=== PATIENT | female | born 1965 | race Caucasian/White ===

== ENCOUNTER → 2018-05-08 | Outpatient (CLI) | payer MEDICARE ==
[2018-05-08 11:07] VITALS: BP 150/80; PULSE 70; RESP 16; TEMP 98.1
--- NOTE | 2018-05-08 11:54 | P.CONS ---
History of Present Illness - Reason for Consult Consult date: 05/08/18 - Chief Complaint Neck and lower back pain - History of Present Illness This is a 52-year-old lady with chronic history of neck and lower back pain status post 5 lower back surgeries and one surgery on the cervical spine. The patient is here today mostly for her neck pain which has been getting worse lately. The pain radiates down to the left shoulder and to the left elbow however the patient denies any numbness or tingling in the left arm however she does feel some numbness in her right hand which is not that painful side. This numbness in the right hand is not constant. She also complains of decreased range of motion of the cervical spine. She feels that her left arm is weaker than the right one. She denies any bowel or bladder dysfunction. This pain occasionally wakes her up at night. She also has difficulty lifting up her left arm above her shoulder level. The patient takes [place] 5 mg 3 times a day for her pain. Review of Systems Cardiovascular: Denies chest pain, Denies shortness of breath Respiratory: Denies cough Musculoskeletal: Reports as per HPI Neurological: Reports as per HPI Past Medical History Past Medical History: Osteoarthritis (OA) Additional Past Medical History / Comment(s): NECK AND BACK PAIN, HX OF PARALYZED VOCAL CORD AFTER CERVICAL SURGERY AND HAD VOCAL CORD SURGERY., PATIENT HAS LAP BAND (NO FLUID) History of Any Multi-Drug Resistant Organisms: None Reported Past Surgical History: Back Surgery, Bariatric Surgery, Joint Replacement, Orthopedic Surgery, Tubal Ligation Additional Past Surgical History / Comment(s): LAP BAND (2011), RT KNEE SURGERIES, PARTIAL RIGHT KNEE REPLACEMENT AND TOTAL RIGHT KNEE REPLACEMENT., BACK SURGERIES AND CERVICAL SURGERY., VOCAL CORD SURGERY X2 (AFTER CERVICAL SURGERY PARALYZED HER VOCAL CORD), LEFT ROTATOR CUFF AND IMPINGMENT REPAIR. Past Anesthesia/Blood Transfusion Reactions: No Reported Reaction Smoking Status: Never smoker - Past Family History Mother Family Medical History: CVA/TIA Father Family Medical History: Cancer, CVA/TIA Additional Family Medical History / Comment(s): PROSTATE CANCER Sister(s) Additional Family Medical History / Comment(s): BRAIN ANEURYSM Medications and Allergies Home Medications Medication Instructions Recorded Confirmed Type HYDROcodone/APAP 5-325MG [[place] 1 tab PO TID PRN 05/08/18 05/08/18 History 5-325] Allergies Allergy/AdvReac Type Severity Reaction Status Date / Time No Known Allergies Allergy Verified 05/07/18 09:02 Physical Exam Vitals: Vital Signs Temp Pulse Resp BP Pulse Ox 05/08/18 10:57 98.1 F 70 16 150/80 99 Intake and Output 05/07/18 05/08/18 05/08/18 22:59 06:59 14:59 Other: Weight 88.451 kg - EENT Eyes: PERRLA - Respiratory Respiratory: bilateral: CTA - Cardiovascular Rhythm: regular - Neurologic Neuro exam of the upper extremities showed normal and symmetrical muscle strength except for decreased left deltoid muscle strength due to shoulder pain. Normal biceps reflexes bilaterally and absent triceps reflexes bilaterally. Neuro exam of the lower extremities showed normal and symmetrical muscle strength and knee reflexes however she has absent ankle reflexes bilaterally. She has decreased range of motion of the left shoulder joint to less than 90 for abduction. Decreased range of motion of the cervical spine. Postoperative tenderness in the cervical paravertebral musculature and significant tenderness around the left shoulder joints posteriorly. Neurologic: CNII-XII intact - Psychiatric Psychiatric: A&O x's 3, appropriate affect, intact judgment & insight Results Results: The cervical spine MRI shows multiple levels of neural foraminal stenosis especially at the C3 4 and C4 5 levels which are the levels above her cervical fusion. 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 The patient is going to see an orthopedic surgeon tomorrow. I prefer to start by doing steroid injection in the left shoulder joint and for any remnants of her pain we might try cervical epidural steroid injection in the future if we need to. Dr. Del Rio may elect to do the shoulder joint steroid injection if he is willing to , if not we can schedule the patient for this injection at sometime in the near future. I thank you for the referral
== END | disposition home or self-care (01) ==
LOC: PNWHC3 10:44
PROVIDERS: ATTEND Anesthesiology
DX: G89.29 Other chronic pain (principal); M48.02 Spinal stenosis, cervical region; M19.012 Primary osteoarthritis, left shoulder; Z98.890 Other specified postprocedural states
CPT/HCPCS: 99201

== ENCOUNTER → 2019-09-21 | Outpatient (CLI) | payer MEDICARE ==
[2019-09-21 14:03] VITALS: BP 127/81; PULSE 65; RESP 16; TEMP 98.1; BMI 35.0
--- NOTE | 2019-09-21 14:04 | P.HPBAR ---
Bariatric H&P - History & Physicial H&P Date: 09/21/19 History & Physicial: Visit/CC: Band f/u Patient initial contact: Initial weight: 104.922 kg Initial weight in pounds: 231.31 Height: 5 ft 6 in Initial BMI: 37.3 Last weight: Current weight: 98.43 kg Current weight in pounds: 217.00 Current BMI: 35.0 [place] body weight (based on NIH guidelines): 58.967 kg Excess body weight loss: 14.1% The patient is a 54 year-old F who presents for Bariatric Assessment. Patient presents today for lab band follow up. She's not been seen in many years. She currently is hungry. Past Medical History Past Medical History: Osteoarthritis (OA) Additional Past Medical History / Comment(s): NECK AND BACK PAIN, HX OF PARALYZED VOCAL CORD AFTER CERVICAL SURGERY AND HAD VOCAL CORD SURGERY., PATIENT HAS LAP BAND (NO FLUID) History of Any Multi-Drug Resistant Organisms: None Reported Past Surgical History: Back Surgery, Bariatric Surgery, Joint Replacement, Orthopedic Surgery, Tubal Ligation Additional Past Surgical History / Comment(s): LAP BAND (2011), RT KNEE SURGERIES, PARTIAL RIGHT KNEE REPLACEMENT AND TOTAL RIGHT KNEE REPLACEMENT., BACK SURGERIES AND CERVICAL SURGERY., VOCAL CORD SURGERY X2 (AFTER CERVICAL SURGERY PARALYZED HER VOCAL CORD), LEFT ROTATOR CUFF AND IMPINGMENT REPAIR. Past Anesthesia/Blood Transfusion Reactions: No Reported Reaction Smoking Status: Unknown if ever smoked - Past Family History Mother Family Medical History: CVA/TIA Father Family Medical History: Cancer, CVA/TIA Additional Family Medical History / Comment(s): PROSTATE CANCER Sister(s) Additional Family Medical History / Comment(s): BRAIN ANEURYSM Surgical - Exam Vital Signs Temp Pulse Resp BP 98.1 F 65 16 127/81 09/21/19 14:00 09/21/19 14:00 09/21/19 14:00 09/21/19 14:00 - General well developed, well nourished, no distress - Eyes PERRL - ENT normal pinna - Neck no masses - Respiratory normal expansion - Cardiovascular Rhythm: regular - Abdomen Abdomen: soft, non tender Bariatric Assessment & Plan Plan: Patient's lap band adjustment. She had 1 mL placed in the band. She'll follow- up in 4 weeks. Bariatric Checklist Checklist: Plan: Checklist: EGD: 1. Hiatal hernia: 2. H. Pylori: HgbA1c: Vitamin D: Smoking: Never smoker Primary care physician referral: dr. cavanaugh Psychiatry clearance: Cardiology clearance: Sleep study: Diet journal: VTE risk score: VTE risk level: Rehab needs at discharge:
== END ==
LOC: BARWHC3 13:36
PROVIDERS: ATTEND Surgery
DX: Z46.51 Encounter for fitting and adjustment of gastric lap band (principal); Z98.84 Bariatric surgery status
CPT/HCPCS: 99212

== ENCOUNTER → 2019-11-09 | Outpatient (CLI) | payer MEDICARE ==
[2019-11-09 14:03] VITALS: BP 146/84; PULSE 82; TEMP 98.2; BMI 33.7
--- NOTE | 2019-11-09 14:08 | P.HPBAR ---
Bariatric H&P - History & Physicial H&P Date: 11/09/19 History & Physicial: Visit/CC: lap band follow up Patient initial contact: Initial weight: 104.922 kg Initial weight in pounds: 231.31 Height: 5 ft 6 in Initial BMI: 37.3 Last weight: Current weight: 94.801 kg Current weight in pounds: 209.00 Current BMI: 33.7 [place] body weight (based on NIH guidelines): 58.967 kg Excess body weight loss: 22.0% The patient is a 54 year-old F who presents for Bariatric Assessment. Patient presents today for lab band follow up. She was adjusted a month ago. She has lost 8 pounds and her last adjustment. She had minimal GERD. Past Medical History Past Medical History: Osteoarthritis (OA) Additional Past Medical History / Comment(s): NECK AND BACK PAIN, HX OF PARALYZED VOCAL CORD AFTER CERVICAL SURGERY AND HAD VOCAL CORD SURGERY., PATIENT HAS LAP BAND (NO FLUID) History of Any Multi-Drug Resistant Organisms: None Reported Past Surgical History: Back Surgery, Bariatric Surgery, Joint Replacement, Orthopedic Surgery, Tubal Ligation Additional Past Surgical History / Comment(s): LAP BAND (2011), RT KNEE SURGERIES, PARTIAL RIGHT KNEE REPLACEMENT AND TOTAL RIGHT KNEE REPLACEMENT., BACK SURGERIES AND CERVICAL SURGERY., VOCAL CORD SURGERY X2 (AFTER CERVICAL SURGERY PARALYZED HER VOCAL CORD), LEFT ROTATOR CUFF AND IMPINGMENT REPAIR. Past Anesthesia/Blood Transfusion Reactions: No Reported Reaction Smoking Status: Never smoker, Unknown if ever smoked - Past Family History Mother Family Medical History: CVA/TIA Father Family Medical History: Cancer, CVA/TIA Additional Family Medical History / Comment(s): PROSTATE CANCER Sister(s) Additional Family Medical History / Comment(s): BRAIN ANEURYSM Surgical - Exam Vital Signs Temp Pulse BP 98.2 F 82 146/84 11/09/19 13:59 11/09/19 13:59 11/09/19 13:59 - General well developed, well nourished, no distress - Eyes PERRL - ENT normal pinna - Neck no masses - Respiratory normal expansion - Cardiovascular Rhythm: regular - Abdomen Abdomen: soft, non tender Bariatric Assessment & Plan Plan: Status post lap band procedure. Patient had excellent weight loss last month. Her band was not adjusted. She currently 7.5 mL in the band. She'll follow-up in 4 weeks. Her GERD is normal he will be observed. Bariatric Checklist Checklist: Plan: Checklist: EGD: 1. Hiatal hernia: 2. H. Pylori: HgbA1c: Vitamin D: Smoking: Never smoker Primary care physician referral: dr. cavanaugh Psychiatry clearance: Cardiology clearance: Sleep study: Diet journal: VTE risk score: VTE risk level: Rehab needs at discharge:
== END | disposition home or self-care (01) ==
LOC: BARWHC3 13:02
PROVIDERS: ATTEND Surgery
DX: Z48.815 Encounter for surgical aftercare following surgery on the digestive system (principal); Z98.84 Bariatric surgery status
CPT/HCPCS: 99211

== ENCOUNTER → 2020-02-15 | Outpatient (CLI) | payer MEDICARE ==
[2020-02-15 13:28] VITALS: BP 127/81; PULSE 75; RESP 18; TEMP 98
--- NOTE | 2020-02-15 14:33 | P.HPBAR ---
Bariatric H&P - History & Physicial H&P Date: 02/15/20 History & Physicial: Visit/CC: follow up / lap band Patient initial contact: Initial weight: 104.922 kg Initial weight in pounds: 231.31 Height: 5 ft 6 in Initial BMI: Last weight: Current weight: 89.358 kg Current weight in pounds: Current BMI: [place] body weight (based on NIH guidelines): Excess body weight loss: The patient is a 54 year-old F who presents for Bariatric Assessment. He presents today for lab band follow. She's not been seen well. She is requesting a fill. Past Medical History Past Medical History: Osteoarthritis (OA) Additional Past Medical History / Comment(s): NECK AND BACK PAIN, HX OF PARALYZED VOCAL CORD AFTER CERVICAL SURGERY AND HAD VOCAL CORD SURGERY., PATIENT HAS LAP BAND (NO FLUID) History of Any Multi-Drug Resistant Organisms: None Reported Past Surgical History: Back Surgery, Bariatric Surgery, Joint Replacement, Orthopedic Surgery, Tubal Ligation Additional Past Surgical History / Comment(s): LAP BAND (2011), RT KNEE SURGERIES, PARTIAL RIGHT KNEE REPLACEMENT AND TOTAL RIGHT KNEE REPLACEMENT., BACK SURGERIES AND CERVICAL SURGERY., VOCAL CORD SURGERY X2 (AFTER CERVICAL SURGERY PARALYZED HER VOCAL CORD), LEFT ROTATOR CUFF AND IMPINGMENT REPAIR. Past Anesthesia/Blood Transfusion Reactions: No Reported Reaction Past Psychological History: No Psychological Hx Reported Smoking Status: Never smoker, Unknown if ever smoked Past Alcohol Use History: None Reported Past Drug Use History: None Reported - Past Family History Mother Family Medical History: CVA/TIA Father Family Medical History: Cancer, CVA/TIA Additional Family Medical History / Comment(s): PROSTATE CANCER Sister(s) Additional Family Medical History / Comment(s): BRAIN ANEURYSM Surgical - Exam Vital Signs Temp Pulse Resp BP 98 F 75 18 127/81 02/15/20 13:24 02/15/20 13:24 02/15/20 13:24 02/15/20 13:24 - General well nourished - Eyes PERRL - Abdomen Abdomen: soft, non tender Bariatric Assessment & Plan Plan: Patient LAP-BAND was just appeared to 0.5 mL added to the band. She currently is 8 mL in the band. He is able to water without difficulty. She'll follow-up in 4 weeks. Bariatric Checklist Checklist: Plan: Checklist: EGD: 1. Hiatal hernia: 2. H. Pylori: HgbA1c: Vitamin D: Smoking: Never smoker Primary care physician referral: NO PCP Psychiatry clearance: Cardiology clearance: Sleep study: Diet journal: VTE risk score: VTE risk level: Rehab needs at discharge:
[2020-02-15 14:37] VITALS: BMI 31.8
== END | disposition home or self-care (01) ==
LOC: BARWHC3 13:01
PROVIDERS: ATTEND Surgery
DX: Z46.51 Encounter for fitting and adjustment of gastric lap band (principal); Z98.84 Bariatric surgery status
CPT/HCPCS: 99212

== ENCOUNTER → 2020-06-13 | Outpatient (CLI) | payer MEDICARE ==
[2020-06-13 14:41] VITALS: BP 128/85; PULSE 73; TEMP 98.1; BMI 30.7
--- NOTE | 2020-06-13 15:21 | P.HPBAR ---
Bariatric H&P - History & Physicial H&P Date: 06/13/20 History & Physicial: Visit/CC: lap band follow up Patient initial contact: Initial weight: 104.922 kg Initial weight in pounds: 231.31 Height: 5 ft 6 in Initial BMI: 37.3 Last weight: Current weight: 86.183 kg Current weight in pounds: 190.00 Current BMI: 30.7 [place] body weight (based on NIH guidelines): 58.967 kg Excess body weight loss: 40.7% The patient is a 55 year-old F who presents for Bariatric Assessment. She presents today for bariatric follow-up. She is lost 7 pounds since her last visit. Patient is has mild complaints of GERD. She's also complaints of her panniculus. She has 1 rashes underneath her pannicular fold. She is interested panniculectomy. Past Medical History Past Medical History: Osteoarthritis (OA) Additional Past Medical History / Comment(s): NECK AND BACK PAIN, HX OF PARALYZED VOCAL CORD AFTER CERVICAL SURGERY AND HAD VOCAL CORD SURGERY., PATIENT HAS LAP BAND (NO FLUID) History of Any Multi-Drug Resistant Organisms: None Reported Past Surgical History: Back Surgery, Bariatric Surgery, Joint Replacement, Orthopedic Surgery, Tubal Ligation Additional Past Surgical History / Comment(s): LAP BAND (2011), RT KNEE SURGERIES, PARTIAL RIGHT KNEE REPLACEMENT AND TOTAL RIGHT KNEE REPLACEMENT., BACK SURGERIES AND CERVICAL SURGERY., VOCAL CORD SURGERY X2 (AFTER CERVICAL SURGERY PARALYZED HER VOCAL CORD), LEFT ROTATOR CUFF AND IMPINGMENT REPAIR. Past Anesthesia/Blood Transfusion Reactions: No Reported Reaction Past Psychological History: No Psychological Hx Reported Smoking Status: Never smoker, Unknown if ever smoked Past Alcohol Use History: None Reported Past Drug Use History: None Reported - Past Family History Mother Family Medical History: CVA/TIA Father Family Medical History: Cancer, CVA/TIA Additional Family Medical History / Comment(s): PROSTATE CANCER Sister(s) Additional Family Medical History / Comment(s): BRAIN ANEURYSM Surgical - Exam Vital Signs Temp Pulse BP 98.1 F 73 128/85 06/13/20 14:39 06/13/20 14:39 06/13/20 14:39 - General well developed, well nourished, no distress - Eyes PERRL - ENT normal pinna - Neck no masses - Respiratory normal expansion - Cardiovascular Rhythm: regular - Abdomen Well-formed panniculus Abdomen: soft, non tender Bariatric Assessment & Plan Plan: Status post lap band procedure. Patient is minimal will be observed. She is in a good fill zone. Patient was given an information packet. We will attempt to obtain authorization. Bariatric Checklist Checklist: Plan: Checklist: EGD: 1. Hiatal hernia: 2. H. Pylori: HgbA1c: Vitamin D: Smoking: Never smoker Primary care physician referral: NO PCP Psychiatry clearance: Cardiology clearance: Sleep study: Diet journal: VTE risk score: VTE risk level: Rehab needs at discharge:
== END ==
LOC: BARWHC3 13:35
PROVIDERS: ATTEND Surgery
DX: E66.01 Morbid (severe) obesity due to excess calories (principal); Z68.30 Body mass index [BMI] 30.0-30.9, adult; Z98.84 Bariatric surgery status; Z46.51 Encounter for fitting and adjustment of gastric lap band; K21.9 Gastro-esophageal reflux disease without esophagitis
CPT/HCPCS: 99211

== ENCOUNTER → 2020-07-11 | Outpatient (CLI) | payer MEDICARE ==
[2020-07-11 15:07] VITALS: BP 114/77; PULSE 71; RESP 18; TEMP 98; BMI 30.4
--- NOTE | 2020-07-11 15:17 | P.HPBAR ---
Bariatric H&P - History & Physicial H&P Date: 07/11/20 History & Physicial: Visit/CC: follow up/ PANNI Patient initial contact: Initial weight: 104.922 kg Initial weight in pounds: 231.31 Height: 5 ft 6 in Initial BMI: 37.3 Last weight: Current weight: 85.729 kg Current weight in pounds: 189.00 Current BMI: 30.4 [place] body weight (based on NIH guidelines): 58.967 kg Excess body weight loss: 41.7% The patient is a 55 year-old F who presents for Bariatric Assessment. Patient presents today for presurgical panniculectomy consultation. Her insurance authorization still pending. She's had some mild GERD. Past Medical History Past Medical History: Osteoarthritis (OA) Additional Past Medical History / Comment(s): NECK AND BACK PAIN, HX OF PARALYZED VOCAL CORD AFTER CERVICAL SURGERY AND HAD VOCAL CORD SURGERY., PATIENT HAS LAP BAND (NO FLUID) History of Any Multi-Drug Resistant Organisms: None Reported Past Surgical History: Back Surgery, Bariatric Surgery, Joint Replacement, Orthopedic Surgery, Tubal Ligation Additional Past Surgical History / Comment(s): LAP BAND (2011), RT KNEE SURGERIES, PARTIAL RIGHT KNEE REPLACEMENT AND TOTAL RIGHT KNEE REPLACEMENT., BACK SURGERIES AND CERVICAL SURGERY., VOCAL CORD SURGERY X2 (AFTER CERVICAL SURGERY PARALYZED HER VOCAL CORD), LEFT ROTATOR CUFF AND IMPINGMENT REPAIR. Past Anesthesia/Blood Transfusion Reactions: No Reported Reaction Past Psychological History: No Psychological Hx Reported Smoking Status: Never smoker Past Alcohol Use History: None Reported Past Drug Use History: None Reported - Past Family History Mother Family Medical History: CVA/TIA Father Family Medical History: Cancer, CVA/TIA Additional Family Medical History / Comment(s): PROSTATE CANCER Sister(s) Additional Family Medical History / Comment(s): BRAIN ANEURYSM Surgical - Exam Vital Signs Temp Pulse Resp BP 98 F 71 18 114/77 07/11/20 14:54 07/11/20 14:54 07/11/20 14:54 07/11/20 14:54 - General well developed, well nourished, no distress - Eyes PERRL - ENT normal pinna - Neck no masses - Respiratory normal expansion - Cardiovascular Rhythm: regular - Abdomen Abdomen: soft, non tender - Genitourinary normal external genitalia - Integumentary Well formed pannus no rash Bariatric Assessment & Plan Plan: Patient's large pannus. We will await insurance authorization prior to scheduling her. Patient's GERD is minimal and observed. Bariatric Checklist Checklist: Plan: Checklist: EGD: 1. Hiatal hernia: 2. H. Pylori: HgbA1c: Vitamin D: Smoking: Never smoker Primary care physician referral: NO PCP Psychiatry clearance: Cardiology clearance: Sleep study: Diet journal: VTE risk score: VTE risk level: Rehab needs at discharge:
[2020-07-11 16:28] LABS: HCT 37.9 % (34.0-46.0); HGB 12.8 gm/dL (11.4-16.0); MCHC 33.7 g/dL (31.0-37.0); Mean Platelet Volume 7.4; Platelet Count 253 k/uL (150-450); RBC 4.12 m/uL (3.80-5.40); RDW 12.9 % (11.5-15.5); WBC 5.4 k/uL (3.8-10.6)
[2020-07-12 03:01] LABS: % Iron Saturation 22.04 (12.00-45.00); African American GFR (CKD) 73.4 (60.0-200.0); Albumin 4.3 g/dL (3.80-4.90); Albumin/Globulin Ratio 1.87 (1.60-3.17); Calcium 9.3 mg/dL (8.7-10.3); Globulin 2.3 g/dL (1.6-3.3); Magnesium 1.9 mg/dL (1.5-2.4); Non-African American GFR(CKD) 63.4 (60.0-200.0); Potassium 4.8 mmol/L (3.5-5.5); Total Bilirubin 0.2 mg/dL (0.2-1.2); Total Protein 6.6 g/dL (6.2-8.2)
[2020-07-12 03:11] LABS: Ferritin 99.8 ng/mL (10.0-291.0)
[2020-07-12 03:12] LABS: Folate, Serum 2.9 ng/mL
[2020-07-13 12:56] LABS: Zinc, Serum 73 ug/dL (60-130)
[2020-07-14 06:29] LABS: Vit B1(Thiamine) 47 ug/L (38-122)
[2020-07-14 06:37] LABS: Vitamin A 19 ug/dL (38-106)
== END ==
LOC: BARWHC3 14:53
PROVIDERS: ATTEND Surgery
DX: E65 Localized adiposity (principal); E66.01 Morbid (severe) obesity due to excess calories; K21.9 Gastro-esophageal reflux disease without esophagitis; D50.8 Other iron deficiency anemias; E44.0 Moderate protein-calorie malnutrition; E55.9 Vitamin D deficiency, unspecified; T56.894A Toxic effect of other metals, undetermined, initial encounter; M19.90 Unspecified osteoarthritis, unspecified site; Z68.37 Body mass index [BMI] 37.0-37.9, adult
CPT/HCPCS: 84255; 84425; 80053; 82607; 82728; 82746; 83540; 83550; 83735; 84443; 84590; 84630; 85027; 82306; 93005; 36415; G0463; 99211

== ENCOUNTER 2020-08-08 06:05 | Observation (INO) | payer MEDICARE ==
[2020-07-27 16:07] VITALS: BMI 29.3
[~2020-08-08 06:05] MED LIST: DEXAMETHASONE SOD PHOSPHATE 4 MG/ML 1 ML VIAL IV ONE; LACTATED RINGERS 1,000 ML IV SCH; LIDOCAINE 1% (10MG/ML) FOR IV START INTRADERMA PRN; MIDAZOLAM 2 MG/2 ML VIAL IV PRN; ONDANSETRON 4 MG/2 ML VIAL IVP ONE
[2020-08-08] MEDS ORDERED: LACTATED RINGERS 1,000 ML IV ONE ×4 (06:41→10:50)
[2020-08-08] MEDS ORDERED: fentaNYL (PF) 50 MCG/ML 2 ML AMP IV ONE (07:28)
[2020-08-08] MEDS ORDERED: HEPARIN SODIUM,PORCINE/PF 5,000 UNIT/0.5 ML SYRINGE SQ ONE (07:47)
[2020-08-08] MEDS ORDERED: MIDAZOLAM 2 MG/2 ML VIAL ONE (07:50)
[2020-08-08] MEDS ORDERED: HYDROmorphone (PF) 1 MG/ML ONE (07:50)
[2020-08-08] MEDS ORDERED: NEOSTIGMINE 1 MG/ML 10 ML VIAL ONE (07:50)
[2020-08-08] MEDS ORDERED: GLYCOPYRROLATE 0.2 MG/ML 2 ML VIAL ONE (07:50)
[2020-08-08] MEDS ORDERED: ROPIVACAINE 5 MG/ML 30 ML VIAL ONE (07:50)
[2020-08-08] MEDS ORDERED: HEPARIN SODIUM,PORCINE 5,000 UNIT/ML 1 ML VIAL SQ ONE (07:50)
[2020-08-08] MEDS ORDERED: ROCURONIUM 10 MG/ML (5 ML VIAL) IV ONE (07:50)
[2020-08-08] MEDS ORDERED: fentaNYL (PF) 50 MCG/ML 2 ML AMP ONE (07:50)
[2020-08-08] MEDS ORDERED: LIDOCAINE 1% INJ 10MG/ML (20 ML MDV) ONE (07:50)
[2020-08-08] MEDS ORDERED: PROPOFOL 10 MG/ML 20 ML VIAL IV ONE (07:50)
--- NOTE | 2020-08-08 10:26 | P.GSHP ---
History of Present Illness H&P Date: 08/08/20 Chief Complaint: Panniculus This a 55-year-old female who presents today for panniculectomy. Patient has developed a well-formed panniculus. Using an excess of 100 pounds. Patient's aware that procedure is not cosmetic however procedure to remove redundant skin and fat. She is possible revisional plastic surgery. Past Medical History Past Medical History: Osteoarthritis (OA) Additional Past Medical History / Comment(s): NECK AND BACK PAIN, HX OF PARALYZED VOCAL CORD AFTER CERVICAL SURGERY, fully vaccinated for covid History of Any Multi-Drug Resistant Organisms: None Reported Past Surgical History: Back Surgery, Bariatric Surgery, Section, Joint Replacement, Orthopedic Surgery, Tubal Ligation Additional Past Surgical History / Comment(s): LAP BAND (2011), RT KNEE SURGERIES, PARTIAL RIGHT KNEE REPLACEMENT AND TOTAL RIGHT KNEE REPLACEMENT., BACK SURGERIES AND CERVICAL SURGERY., VOCAL CORD SURGERY X2 (AFTER CERVICAL SURGERY PARALYZED HER VOCAL CORD), LEFT ROTATOR CUFF REPAIR. Past Anesthesia/Blood Transfusion Reactions: No Reported Reaction Smoking Status: Never smoker - Past Family History Mother Family Medical History: CVA/TIA Father Family Medical History: Cancer, CVA/TIA Additional Family Medical History / Comment(s): PROSTATE CANCER Sister(s) Additional Family Medical History / Comment(s): BRAIN ANEURYSM Medications and Allergies Home Medications Medication Instructions Recorded Confirmed Type HYDROcodone/APAP 5-325MG [[place] 1 tab PO TID PRN 05/08/18 07/27/20 History 5-325] Vitamin A 8,000 unit PO DAILY 07/27/20 07/27/20 History Allergies Allergy/AdvReac Type Severity Reaction Status Date / Time No Known Allergies Allergy Verified 07/27/20 16:03 Surgical - Exam Vital Signs Temp Pulse Resp BP Pulse Ox 97.7 F 57 L 18 146/71 100 08/08/20 06:30 08/08/20 06:30 08/08/20 06:30 08/08/20 06:30 08/08/20 06:30 - General well developed, well nourished, no distress - Eyes PERRL - ENT normal pinna - Neck no masses - Respiratory normal expansion - Cardiovascular Rhythm: regular - Abdomen Abdomen: soft, non tender - Integumentary Well-formed panniculectomy Assessment and Plan Assessment: Panniculus. W we will perform panniculectomy
[2020-08-08] MEDS ORDERED: NALOXONE 0.4 MG/ML 1 ML VIAL IV PRN (10:28)
[2020-08-08] MEDS ORDERED: traMADol 50 MG TAB PO PRN (10:28)
[2020-08-08] MEDS: HYDROmorphone 0.5 MG/0.5 ML SYRINGE IVP PRN ×5 (10:28→20:54)
[2020-08-08] MEDS ORDERED: ONDANSETRON 4 MG/2 ML VIAL IVP PRN (10:28)
[2020-08-08] MEDS ORDERED: Acetaminophen-Codeine 300-30mg TAB PO PRN (10:28)
--- NOTE | 2020-08-08 10:28 | P.OP ---
Date of Procedure: 08/08/20 Preoperative Diagnosis: Panniculus Postoperative Diagnosis: Panniculus Procedure(s) Performed: Panniculectomy Anesthesia: RAJINDER Surgeon: Jono Page Estimated Blood Loss (ml): 25 Pathology: none sent Condition: stable Disposition: PACU Description of Procedure: PROCEDURE: The patient was placed on the operating table in supine position and received general anesthetic. The abdomen was prepped and draped in the usual sterile fashion. The lower skin incision was then made after the skin was marked with a marker. The incision ran from the pubic area to the level of the anterosuperior iliac spine. Using blunt and sharp dissection and electrocautery the subcutaneous tissues were then dissected down to the level of the fascia external oblique. Next, a dionne shaped incision was made around the umbilicus and the umbilicus was then dissected down to the level of the fascia external oblique. Care was taken to ensure that the umbilical stalk was wide enough in order to maintain viability of the umbilicus. After the umbilicus was dissected a 0 Vicryl suture was used to orientate the umbilicus. The suture was placed at the 12 o'clock position of the umbilicus. Following this the dissection was then made from the inferior pannicular incision cephalad. The x iphoid and costal margins were the limits of the dissection. Several small perforating vessels were ligated and cautery was used to maintain hemostasis. Once the dissection was performed the panniculus was then divided in the midline from the level of the umbilicus towards the pubic area. Downward and lateral traction was then placed on the abdominal wall and the skin was suitably marked for transection of the umbilicus. The skin was then incised and the Bovie was used for dissection of the pannicular flap. Next, three 10-Faroese ANGELIA drains were placed in the wound and brought out through separate stab incisions at the level of the pubic area. The drains were secured to the skin using 3-0 nylon. After the ANGELIA drains were secured, Zakia's fascia was closed with interrupted 0 Vicryl sutures and then the skin was closed with running 3-0 Monocryl sutures. Prior to closure of the abdominal wall care was taken to ensure that both the abdominal wall and the abdominal wall flap were hemostatic. Next, the umbilicus was reattached to the abdominal wall. A marking line was made across the top of the iliac crest and this line intercepted with the midline abdominal wall line that had been previously made in the preoperative hold area. A small semicircular U-shaped incision was created at the intersection of the two lines and the umbilicus was brought up through this incision. The umbilicus was then trimmed and secured to the skin using 3-0 Monocryl sutures. At this point the drains were placed to suction. The abdomen was cleaned and then sterile tape was placed over top of the incisions. Abdominal binder was then placed. The patient tolerated the procedure well. The patient was sent to recovery room in stable condition.
[2020-08-08] MEDS ORDERED: diphenhydrAMINE 50 MG/ML 1 ML VIAL IVP ONE (10:49)
--- NOTE | 2020-08-08 11:39 | P.ANPRN ---
Procedure Note - Anesthesia - Nerve Block Performed Bilateral Erector Spinae Time Out Performed: Yes (07:20) Date of Procedure: 08/08/20 Procedure Start Time: : Procedure Stop Time: :35 Location of Patient: PreOp Indication: Acute Post-Operative Pain, Requested by Surgeon (Dr Page) Sedation Type: Sedate with meaningful contact maintained Preparation: Sterile Prep Position: Prone Catheter: None Needle Types: Pajunk Needle Gauge: 21 Ultrasound used to visualize needle placement: Yes Ultrasound used to observe medication spread: Yes Injectate: 0.5% Ropivacaine (see comment for volume) (15cc + PF normal saline each side) Blood Aspirated: No Pain Paresthesia on Injection Noted: No Resistance on Injection: Normal Image Stored and Saved: Yes Events: Uneventful and Well Tolerated
[2020-08-08] MEDS: KETOROLAC 15 MG/ML 1 ML VIAL IVP SCH ×2 (13:00→18:16)
[2020-08-08 13:46] VITALS: RESP 16
--- NOTE | 2020-08-08 18:47 | P.CON ---
Consult Note - . Consult date: 08/08/20 Assessment/Plan:: Ms. Ford is a 55-year-old female with a past medical history of osteoarthritis, chronic neck and back pain, vocal cord paralysis after cervical surgery admitted for panniculectomy. Patient had the procedure done by Dr. Page this morning. She is comfortably lying in bed appears to be no acute distress. Patient states that she takes [place] for her pain. Patient states that she has abdominal soreness as she just had the surgery done. She denies having any chest pain or palpitations. No cough or difficulty in breathing. She denies having any fevers chills or rigors. Patient does not have history of smoking or alcohol use. Patient's current vitals temperature 97.8, heart rate 50s to 70s, respiratory rate 16, blood pressure 168/79, saturating at 99% on room air. Her labs from last one showing white count of 5.7 hemoglobin of 4.8 and platelet count of 253. Review of Systems CONSTITUTIONAL: No fever, no malaise, no fatigue. HEENT: History of vocal cord paralysis status post cervical surgery CARDIOVASCULAR: No chest pain or palpitations PULMONARY: No shortness of breath, no cough, no hemoptysis. GASTROINTESTINAL: No abdominal pain nausea vomiting or diarrhea NEUROLOGICAL: No headaches, no weakness, no numbness. HEMATOLOGICAL: Denies any bleeding or petechiae. GENITOURINARY: Denies any burning micturition, frequency, or urgency. MUSCULOSKELETAL/RHEUMATOLOGICAL: Denies any joint pain, swelling, or any muscle pain. ENDOCRINE: Denies any polyuria or polydipsia. PSYC: No depression or anxiety All 13 review of systems negative except for the ones mentioned above Past Medical History Past Medical History: Osteoarthritis (OA) Additional Past Medical History / Comment(s): NECK AND BACK PAIN, HX OF PARA LYZED VOCAL CORD AFTER CERVICAL SURGERY, fully vaccinated for covid History of Any Multi-Drug Resistant Organisms: None Reported Past Surgical History: Back Surgery, Bariatric Surgery, Section, Joint Replacement, Orthopedic Surgery, Tubal Ligation Additional Past Surgical History / Comment(s): LAP BAND (2011), RT KNEE SURGERIES, PARTIAL RIGHT KNEE REPLACEMENT AND TOTAL RIGHT KNEE REPLACEMENT., BACK SURGERIES AND CERVICAL SURGERY., VOCAL CORD SURGERY X2 (AFTER CERVICAL SURGERY PARALYZED HER VOCAL CORD), LEFT ROTATOR CUFF REPAIR. Past Anesthesia/Blood Transfusion Reactions: No Reported Reaction Past Psychological History: No Psychological Hx Reported Smoking Status: Never smoker Past Alcohol Use History: None Reported Past Drug Use History: None Reported - Past Family History Mother Family Medical History: CVA/TIA Father Family Medical History: Cancer, CVA/TIA Additional Family Medical History / Comment(s): PROSTATE CANCER Sister(s) Additional Family Medical History / Comment(s): BRAIN ANEURYSM Medications and Allergies Home Medications Medication Instructions Recorded Confirmed Type HYDROcodone/APAP 5-325MG [[place] 1 tab PO TID PRN 05/08/18 07/27/20 History 5-325] Vitamin A 8,000 unit PO DAILY 07/27/20 07/27/20 History Allergies Allergy/AdvReac Type Severity Reaction Status Date / Time No Known Allergies Allergy Verified 07/27/20 16:03 Physical Exam Vitals: Vital Signs Temp Pulse Resp BP BP Pulse Ox 08/08/20 13:37 58 L 16 146/92 96 08/08/20 13:07 56 L 16 163/80 95 08/08/20 12:52 68 16 165/82 99 08/08/20 12:37 61 18 165/79 95 08/08/20 12:22 97.8 F 56 L 18 169/62 95 08/08/20 11:30 53 L 16 153/70 97 08/08/20 11:00 53 L 14 157/72 100 08/08/20 10:45 54 L 14 138/65 94 L 08/08/20 10:30 62 14 143/61 99 08/08/20 10:19 98.2 F 66 16 145/65 98 08/08/20 07:44 55 L 16 135/68 99 08/08/20 06:30 97.7 F 57 L 18 146/71 100 Intake and Output 08/08/20 08/08/20 08/08/20 06:59 14:59 22:59 Intake Total 400 1650 Output Total 120 Balance 400 1530 Intake: IV 400 1650 Output: Urine 70 Estimated Blood Loss 50 Other: Weight 86.183 kg GENERAL: The patient is alert and oriented x3, not in any acute distress. HEENT: Pupils are round and equally reacting to light. EOMI. No scleral icterus. no conjunctival pallor. Normocephalic, atraumatic. CARDIOVASCULAR: S1 and S2 present. No murmurs, rubs, or gallops. PULMONARY: Chest is clear to auscultation, no wheezing or crackles. ABDOMEN: Abdominal binder in place and ANGELIA tube with serosanguineous discharge MUSCULOSKELETAL: No joint swelling or deformity. EXTREMITIES: No cyanosis, clubbing, or pedal edema. NEUROLOGICAL: Gross neurological examination did not reveal any focal deficits. Psychiatric: Appropriate mood and affect Thrombosis Risk Factor Assmnt - Choose All That Apply Any of the Below Risk Factors Present?: Yes Each Factor Represents 1 point: Age 41-60 years Each Risk Factor Represents 2 Points: Major surgery Thrombosis Risk Factor Assessment Total Risk Factor Score: 3 Thrombosis Risk Factor Assessment Level: Moderate Risk ASSESSMENT Status post panniculectomy Chronic neck pain status post cervical surgery Vocal cord paralysis PLAN: Patient had panniculectomy done this morning, her systolic blood pressure slightly on the higher side could be secondary to pain. Patient encouraged to do incentive spirometry, early ambulation. Rest of the management as per surgical team. We'll follow the patient on when necessary basis. Thank you for your consult.
[2020-08-09] MEDS: HYDROmorphone 0.5 MG/0.5 ML SYRINGE IVP PRN ×4 (00:24→12:54)
[2020-08-09] MEDS: KETOROLAC 15 MG/ML 1 ML VIAL IVP SCH ×4 (00:24→17:50)
[2020-08-09] MEDS: HYDROcodone/APAP 5-325MG 1 EACH TAB PO PRN ×2 (06:14→16:23)
[2020-08-09] MEDS ORDERED: ENOXAPARIN 40 MG/0.4 ML SYRINGE SQ SCH (09:00)
[2020-08-09 14:56] VITALS: BP 133/77; PULSE 57; TEMP 97.6
--- NOTE | 2020-08-09 15:37 | P.DS ---
Providers Date of admission: 08/09/20 14:27 Expected date of discharge: 08/09/20 Attending physician: Jono Page Consults: 08/08/20 10:28 Consult Physician Routine Consulting Provider: Lois Dominguez Consult Reason/Comments: Medical management Do you want consulting provider notified?: Yes Primary care physician: [place] Hospital Course: Discharge diagnosis 1. Panniculus status post panniculectomy Hospital course This is a 55-year-old female with a well-formed panniculus with excess of 100 pounds. Patient is status post panniculectomy. Her pain is currently controlled. She did eat a small amount of lunch with no nausea or vomiting. She is urinating without difficulty. She is ambulating. She is afebrile. Patient can be discharged this evening if she is tolerating diet and her pain remains controlled. She is stable for discharge. Please refer to chart for any further details. Physician Senior Policy Advisor note has been reviewed by physician. Signing provider agrees with the documented findings, assessment, and plan of care. Patient Condition at Discharge: Stable Plan - Discharge Summary Discharge Rx Participant: Yes New Discharge Prescriptions: Continue HYDROcodone/APAP 5-325MG [[place] 5-325] 1 tab PO TID PRN PRN Reason: Pain Vitamin A 8,000 unit PO DAILY Discharge Medication List HYDROcodone/APAP 5-325MG [[place] 5-325] 1 tab PO TID PRN 05/08/18 [History] Vitamin A 8,000 unit PO DAILY 07/27/20 [History] Follow up Appointment(s)/Referral(s): Jono Page MD [STAFF PHYSICIAN] - 1 Week Patient Instructions/Handouts: Panniculectomy (GEN) Activity/Diet/Wound Care/Special Instructions: No driving while taking [place] No lifting over 10 pounds You may shower. No soaking or tub baths for 2 weeks Very light activity until you are reevaluated at your follow up appointment with your surgeon Keep a log of ANGELIA drain output and bring with you to your follow-up appointment Milk/strip drains 2-3 times a day
== END 2020-08-09 18:54 | disposition home or self-care (01) ==
LOC: OR 06:05 → 6PED 10:58 → OR 08-09 14:27
PROVIDERS: ADMIT Surgery; ATTEND Surgery
DX: M79.3 Panniculitis, unspecified (principal); L98.7 Excessive and redundant skin and subcutaneous tissue; M19.90 Unspecified osteoarthritis, unspecified site; G89.29 Other chronic pain; M54.2 Cervicalgia; M54.9 Dorsalgia, unspecified; J38.00 Paralysis of vocal cords and larynx, unspecified; Z98.84 Bariatric surgery status; Z98.890 Other specified postprocedural states; Z96.651 Presence of right artificial knee joint; Z82.3 Family history of stroke; Z82.49 Family history of ischemic heart disease and other diseases of the circulatory system; Z80.42 Family history of malignant neoplasm of prostate
CPT/HCPCS: 15830; 64999; G0378 ×2; J2250; J1200; J1644; J1100; J2710; J0690; J2405; J2001; J1650; J3010; J1170 ×3; J2795; J1885 ×2; J2704

== ENCOUNTER → 2020-08-15 | Outpatient (CLI) | payer MEDICARE ==
[2020-08-15 14:10] VITALS: BP 144/82; PULSE 78; TEMP 97.2; BMI 29.5
--- NOTE | 2020-10-19 11:46 | P.HPBAR ---
Bariatric H&P - History & Physicial H&P Date: 08/15/20 History & Physicial: Visit/CC: panni follow up Patient initial contact: Initial weight: 104.922 kg Initial weight in pounds: 231.31 Height: 5 ft 6 in Initial BMI: 37.3 Last weight: Current weight: 83.007 kg Current weight in pounds: 183.00 Current BMI: 29.5 [place] body weight (based on NIH guidelines): 58.967 kg Excess body weight loss: 47.6% The patient is a 55 year-old F who presents for Bariatric Assessment. Patient presents today for panniculectomy to follow-up. She has no complaints. Past Medical History Past Medical History: Osteoarthritis (OA) Additional Past Medical History / Comment(s): NECK AND BACK PAIN, HX OF PARALYZED VOCAL CORD AFTER CERVICAL SURGERY, fully vaccinated for covid History of Any Multi-Drug Resistant Organisms: None Reported Past Surgical History: Back Surgery, Bariatric Surgery, Section, Joint Replacement, Orthopedic Surgery, Tubal Ligation Additional Past Surgical History / Comment(s): LAP BAND (2011), RT KNEE SURGERIES, PARTIAL RIGHT KNEE REPLACEMENT AND TOTAL RIGHT KNEE REPLACEMENT., BACK SURGERIES AND CERVICAL SURGERY., VOCAL CORD SURGERY X2 (AFTER CERVICAL SURGERY PARALYZED HER VOCAL CORD), LEFT ROTATOR CUFF REPAIR. panniculectomy 08-08-20 Past Anesthesia/Blood Transfusion Reactions: No Reported Reaction Past Psychological History: No Psychological Hx Reported Smoking Status: Never smoker Past Alcohol Use History: None Reported Past Drug Use History: None Reported - Past Family History Mother Family Medical History: CVA/TIA Father Family Medical History: Cancer, CVA/TIA Additional Family Medical History / Comment(s): PROSTATE CANCER Sister(s) Additional Family Medical History / Comment(s): BRAIN ANEURYSM Surgical - Exam Vital Signs Temp Pulse BP 97.2 F L 78 144/82 08/15/20 14:08 08/15/20 14:08 08/15/20 14:08 - General well developed, well nourished, no distress - Eyes PERRL - ENT normal pinna - Respiratory normal expansion - Cardiovascular Rhythm: regular - Abdomen Incision well-healed Abdomen: soft, non tender Bariatric Assessment & Plan Plan: Status post pedicled. Patient still quite well. She'll follow-up in one week. Bariatric Checklist Checklist: Plan: Checklist: EGD: 1. Hiatal hernia: 2. H. Pylori: HgbA1c: Vitamin D: Smoking: Never smoker Primary care physician referral: NO PCP Psychiatry clearance: Cardiology clearance: Sleep study: Diet journal: VTE risk score: VTE risk level: Rehab needs at discharge:
== END | disposition home or self-care (01) ==
LOC: BARWHC3 13:53
PROVIDERS: ATTEND Surgery
DX: E66.01 Morbid (severe) obesity due to excess calories (principal); Z68.29 Body mass index [BMI] 29.0-29.9, adult; Z98.1 Arthrodesis status
CPT/HCPCS: 99212

== ENCOUNTER → 2020-08-24 | Outpatient (CLI) | payer MEDICARE ==
--- NOTE | 2020-08-24 10:54 | P.HPBAR ---
Bariatric H&P - History & Physicial H&P Date: 08/24/20 History & Physicial: Visit/CC: Patient initial contact: Initial weight: 104.922 kg Initial weight in pounds: Height: Initial BMI: Last weight: Current weight: Current weight in pounds: Current BMI: [place] body weight (based on NIH guidelines): Excess body weight loss: The patient is a 55 year-old F who presents for Bariatric Assessment. Patient presents today for postop day colectomy check. Her drains are still producing in excess of 35 mL per day. Past Medical History Past Medical History: Osteoarthritis (OA) Additional Past Medical History / Comment(s): NECK AND BACK PAIN, HX OF PARALYZED VOCAL CORD AFTER CERVICAL SURGERY, fully vaccinated for covid History of Any Multi-Drug Resistant Organisms: None Reported Past Surgical History: Back Surgery, Bariatric Surgery, Section, Joint Replacement, Orthopedic Surgery, Tubal Ligation Additional Past Surgical History / Comment(s): LAP BAND (2011), RT KNEE SURGERIES, PARTIAL RIGHT KNEE REPLACEMENT AND TOTAL RIGHT KNEE REPLACEMENT., BACK SURGERIES AND CERVICAL SURGERY., VOCAL CORD SURGERY X2 (AFTER CERVICAL KENDRA DAYLIN PARALYZED HER VOCAL CORD), LEFT ROTATOR CUFF REPAIR. panniculectomy 08-08-20 Past Anesthesia/Blood Transfusion Reactions: No Reported Reaction Past Psychological History: No Psychological Hx Reported Smoking Status: Never smoker Past Alcohol Use History: None Reported Past Drug Use History: None Reported - Past Family History Mother Family Medical History: CVA/TIA Father Family Medical History: Cancer, CVA/TIA Additional Family Medical History / Comment(s): PROSTATE CANCER Sister(s) Additional Family Medical History / Comment(s): BRAIN ANEURYSM Surgical - Exam - General well developed, well nourished, no distress - Eyes PERRL - ENT normal pinna - Neck no masses - Respiratory normal expansion - Cardiovascular Rhythm: regular - Abdomen Incision is clean dry tach. Abdomen: soft, non tender Bariatric Assessment & Plan Plan: Status post left colectomy. Patient will follow-up in one week for drain removal. She is healing nicely. There is no evidence of any infection or cellulitis abdominal wall. Bariatric Checklist Checklist: Plan: Checklist: EGD: 1. Hiatal hernia: 2. H. Pylori: HgbA1c: Vitamin D: Smoking: Never smoker Primary care physician referral: NO PCP Psychiatry clearance: Cardiology clearance: Sleep study: Diet journal: VTE risk score: VTE risk level: Rehab needs at discharge:
[2020-08-24 11:05] VITALS: BP 132/70; PULSE 65; TEMP 97.7; BMI 29.2
== END | disposition home or self-care (01) ==
LOC: BARWHC3 09:48
PROVIDERS: ATTEND Surgery
DX: Z09 Encounter for follow-up examination after completed treatment for conditions other than malignant neoplasm (principal); E66.01 Morbid (severe) obesity due to excess calories; Z90.49 Acquired absence of other specified parts of digestive tract
CPT/HCPCS: 99212

== ENCOUNTER → 2020-08-30 | Outpatient (CLI) | payer MEDICARE | CPT/HCPCS: 99212 ==

== ENCOUNTER → 2020-09-12 | Outpatient (CLI) | payer MEDICARE ==
[2020-09-12 13:27] VITALS: BP 133/74; PULSE 71; RESP 18; TEMP 98.5; BMI 29.5
--- NOTE | 2020-09-12 14:05 | P.HPBAR ---
Bariatric H&P - History & Physicial H&P Date: 09/12/20 History & Physicial: Visit/CC: follow up Patient initial contact: Initial weight: 104.922 kg Initial weight in pounds: 231.31 Height: 5 ft 6 in Initial BMI: 37.3 Last weight: Current weight: 83.007 kg Current weight in pounds: 183.00 Current BMI: 29.5 [place] body weight (based on NIH guidelines): 58.967 kg Excess body weight loss: 47.6% The patient is a 55 year-old F who presents for Bariatric Assessment. Patient resents today for bariatric follow-up. She has some minimal GERD. She states that her panniculectomy incisions are healing well. Past Medical History Past Medical History: Osteoarthritis (OA) Additional Past Medical History / Comment(s): NECK AND BACK PAIN, HX OF PARALYZED VOCAL CORD AFTER CERVICAL SURGERY, fully vaccinated for covid History of Any Multi-Drug Resistant Organisms: None Reported Past Surgical History: Back Surgery, Bariatric Surgery, Section, Joint Replacement, Orthopedic Surgery, Tubal Ligation Additional Past Surgical History / Comment(s): LAP BAND (2011), RT KNEE SURGERIES, PARTIAL RIGHT KNEE REPLACEMENT AND TOTAL RIGHT KNEE REPLACEMENT., BACK SURGERIES AND CERVICAL SURGERY., VOCAL CORD SURGERY X2 (AFTER CERVICAL SURGERY PARALYZED HER VOCAL CORD), LEFT ROTATOR CUFF REPAIR. PANNI 08/08/2020. panniculectomy 08-08-20 Past Anesthesia/Blood Transfusion Reactions: No Reported Reaction Past Psychological History: No Psychological Hx Reported Smoking Status: Never smoker Past Alcohol Use History: None Reported Past Drug Use History: None Reported - Past Family History Mother Family Medical History: CVA/TIA Father Family Medical History: Cancer, CVA/TIA Additional Family Medical History / Comment(s): PROSTATE CANCER Sister(s) Additional Family Medical History / Comment(s): BRAIN ANEURYSM Surgical - Exam Vital Signs Temp Pulse Resp BP 98.5 F 71 18 133/74 09/12/20 13:16 09/12/20 13:16 09/12/20 13:16 09/12/20 13:16 - General well developed, well nourished, no distress - Eyes PERRL - ENT normal pinna - Neck no masses - Respiratory normal expansion - Cardiovascular Rhythm: regular - Abdomen Abdomen: soft, non tender Bariatric Assessment & Plan Plan: Patient's loss another 4 pounds her last visit. Her GERD is minimal old be observed. She'll follow-up in 8 weeks. Bariatric Checklist Checklist: Plan: Checklist: EGD: 1. Hiatal hernia: 2. H. Pylori: HgbA1c: Vitamin D: Smoking: Never smoker Primary care physician referral: Dr. Lee; No set PCP Psychiatry clearance: Cardiology clearance: Sleep study: Diet journal: VTE risk score: VTE risk level: Rehab needs at discharge:
== END | disposition home or self-care (01) ==
LOC: BARWHC3 12:59
PROVIDERS: ATTEND Surgery
DX: E66.01 Morbid (severe) obesity due to excess calories (principal); Z68.29 Body mass index [BMI] 29.0-29.9, adult
CPT/HCPCS: 99212

== ENCOUNTER → 2020-12-26 | Outpatient (CLI) | payer MEDICARE ==
[2020-12-26 14:35] VITALS: BP 138/85; PULSE 72; TEMP 98; BMI 28.8
--- NOTE | 2021-01-05 19:52 | P.HPBAR ---
Bariatric H&P - History & Physicial H&P Date: 12/26/20 History & Physicial: Visit/CC: alize follow up Patient initial contact: Initial weight: 104.922 kg Initial weight in pounds: 231.31 Height: 5 ft 6 in Initial BMI: 37.3 Last weight: Current weight: 81.193 kg Current weight in pounds: 179.00 Current BMI: 28.8 [place] body weight (based on NIH guidelines): 58.967 kg Excess body weight loss: 51.6% The patient is a 55 year-old F who presents for Bariatric Assessment. Patient rents today for Port-A-Cath and follow-up. She is feeling well. Her incisions are healing well. Past Medical History Past Medical History: Osteoarthritis (OA) Additional Past Medical History / Comment(s): NECK AND BACK PAIN, HX OF PARALYZED VOCAL CORD AFTER CERVICAL SURGERY, fully vaccinated for covid History of Any Multi-Drug Resistant Organisms: None Reported Past Surgical History: Back Surgery, Bariatric Surgery, Section, Joint Replacement, Orthopedic Surgery, Tubal Ligation Additional Past Surgical History / Comment(s): LAP BAND (2011), RT KNEE SURGERIES, PARTIAL RIGHT KNEE REPLACEMENT AND TOTAL RIGHT KNEE REPLACEMENT., BACK SURGERIES AND CERVICAL SURGERY., VOCAL CORD SURGERY X2 (AFTER CERVICAL SURGERY PARALYZED HER VOCAL CORD), LEFT ROTATOR CUFF REPAIR. PANNI 08/08/2020. panniculectomy 08-08-20 Past Anesthesia/Blood Transfusion Reactions: No Reported Reaction Past Psychological History: No Psychological Hx Reported Smoking Status: Never smoker Past Alcohol Use History: None Reported Past Drug Use History: None Reported - Past Family History Mother Family Medical History: CVA/TIA Father Family Medical History: Cancer, CVA/TIA Additional Family Medical History / Comment(s): PROSTATE CANCER Sister(s) Additional Family Medical History / Comment(s): BRAIN ANEURYSM Surgical - Exam Vital Signs Temp Pulse BP 98 F 72 138/85 12/26/20 14:30 12/26/20 14:30 12/26/20 14:30 - General well developed, well nourished, no distress - Eyes PERRL - ENT normal pinna - Neck no masses - Respiratory normal expansion - Cardiovascular Rhythm: regular - Abdomen Incision well-healed. Abdomen: soft, non tender Bariatric Assessment & Plan Plan: ANGELIA drains removed. Patient incision is well-healed. She'll follow-up in 2 weeks. Bariatric Checklist Checklist: Plan: Checklist: EGD: 1. Hiatal hernia: 2. H. Pylori: HgbA1c: Vitamin D: Smoking: Never smoker Primary care physician referral: Dr. Lee; No set PCP Psychiatry clearance: Cardiology clearance: Sleep study: Diet journal: VTE risk score: VTE risk level: Rehab needs at discharge:
== END | disposition home or self-care (01) ==
LOC: BARWHC3 13:17
PROVIDERS: ATTEND Surgery
DX: E66.01 Morbid (severe) obesity due to excess calories (principal); Z68.28 Body mass index [BMI] 28.0-28.9, adult
CPT/HCPCS: 99211

== ENCOUNTER → 2021-04-24 | Outpatient (CLI) | payer MEDICARE ==
[2021-04-24 14:01] VITALS: BP 152/80; PULSE 67; TEMP 98.2; BMI 29.2
--- NOTE | 2021-05-01 15:25 | P.HPBAR ---
Bariatric H&P - History & Physicial H&P Date: 04/24/21 History & Physicial: Visit/CC: panni follow up Patient initial contact: Initial weight: 104.922 kg Initial weight in pounds: 231.31 Height: 5 ft 6 in Initial BMI: 37.3 Last weight: Current weight: 82.1 kg Current weight in pounds: 181.00 Current BMI: 29.2 [place] body weight (based on NIH guidelines): 58.967 kg Excess body weight loss: 49.6% The patient is a 55 year-old F who presents for Bariatric Assessment. Patient presents today for bariatric follow-up. She's had some mild GERD. Past Medical History Past Medical History: Osteoarthritis (OA) Additional Past Medical History / Comment(s): NECK AND BACK PAIN, HX OF PARALYZED VOCAL CORD AFTER CERVICAL SURGERY, fully vaccinated for covid History of Any Multi-Drug Resistant Organisms: None Reported Past Surgical History: Back Surgery, Bariatric Surgery, Section, Joint Replacement, Orthopedic Surgery, Tubal Ligation Additional Past Surgical History / Comment(s): LAP BAND (2011), RT KNEE SURGERIES, PARTIAL RIGHT KNEE REPLACEMENT AND TOTAL RIGHT KNEE REPLACEMENT., BACK SURGERIES AND CERVICAL SURGERY., VOCAL CORD SURGERY X2 (AFTER CERVICAL SURGERY PARALYZED HER VOCAL CORD), LEFT ROTATOR CUFF REPAIR. PANNI 08/08/2020. panniculectomy 08-08-20 Past Anesthesia/Blood Transfusion Reactions: No Reported Reaction Smoking Status: Never smoker - Past Family History Mother Family Medical History: CVA/TIA Father Family Medical History: Cancer, CVA/TIA Additional Family Medical History / Comment(s): PROSTATE CANCER Sister(s) Additional Family Medical History / Comment(s): BRAIN ANEURYSM Surgical - Exam Vital Signs Temp Pulse BP 98.2 F 67 152/80 04/24/21 13:58 04/24/21 13:58 04/24/21 13:58 - General well developed, well nourished, no distress - Eyes PERRL - ENT normal pinna - Neck no masses - Respiratory normal expansion - Cardiovascular Rhythm: regular - Abdomen Well-healed panniculectomy scars Abdomen: soft, non tender Bariatric Assessment & Plan Plan: Improving morbid obesity. Patient BMI is 29. Her GERD is minimal and will be observed. She'll follow-up in 4 weeks. Bariatric Checklist Checklist: Plan: Checklist: EGD: 1. Hiatal hernia: 2. H. Pylori: HgbA1c: Vitamin D: Smoking: Never smoker Primary care physician referral: Dr. Lee; No set PCP Psychiatry clearance: Cardiology clearance: Sleep study: Diet journal: VTE risk score: VTE risk level: Rehab needs at discharge:
== END | disposition home or self-care (01) ==
LOC: BARWHC3 12:52
PROVIDERS: ATTEND Surgery
DX: E66.01 Morbid (severe) obesity due to excess calories (principal); Z68.29 Body mass index [BMI] 29.0-29.9, adult
CPT/HCPCS: 99211

== ENCOUNTER → 2021-07-31 | Outpatient (CLI) | payer MEDICARE ==
[2021-07-31 14:04] VITALS: BP 152/81; PULSE 57; TEMP 98.4; BMI 28.5
--- NOTE | 2021-07-31 15:52 | P.HPBAR ---
Bariatric H&P - History & Physicial H&P Date: 07/31/21 History & Physicial: Visit/CC: alize f/u Patient initial contact: Initial weight: 104.922 kg Initial weight in pounds: 231.31 Height: 5 ft 6 in Initial BMI: 37.3 Last weight: Current weight: 80.286 kg Current weight in pounds: 177.00 Current BMI: 28.5 [place] body weight (based on NIH guidelines): 58.967 kg Excess body weight loss: 53.6% The patient is a 56 year-old F who presents for Bariatric Assessment. Patient presents today for bariatric follow-up. She's doing quite well. She has lost another 10 pounds. He said some minimal GERD. 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 [place] 08/08/2020. panniculectomy 08-08-20 Past Anesthesia/Blood Transfusion Reactions: No Reported Reaction Past Psychological History: No Psychological Hx Reported Smoking Status: Never smoker Past Alcohol Use History: None Reported Past Drug Use History: None Reported - Past Family History Mother Family Medical History: CVA/TIA Father Family Medical History: Cancer, CVA/TIA Additional Family Medical History / Comment(s): PROSTATE CANCER Sister(s) Additional Family Medical History / Comment(s): BRAIN ANEURYSM Surgical - Exam Vital Signs Temp Pulse BP 98.4 F 57 L 152/81 07/31/21 13:56 07/31/21 13:56 07/31/21 13:56 - General well developed, well nourished, no distress - Eyes PERRL - ENT normal pinna - Neck no masses - Respiratory normal expansion - Abdomen Abdomen: soft, non tender Bariatric Assessment & Plan Plan: Patient is status post sleeve gastrectomy. Her GERD is minimal and will be observed. She'll follow-up in 4 weeks. Bariatric Checklist Checklist: Plan: Checklist: EGD: 1. Hiatal hernia: 2. H. Pylori: HgbA1c: Vitamin D: Smoking: Never smoker Primary care physician referral: Dr. Lee; No set PCP Psychiatry clearance: Cardiology clearance: Sleep study: Diet journal: VTE risk score: VTE risk level: Rehab needs at discharge:
== END | disposition home or self-care (01) ==
LOC: BARWHC3 13:34
PROVIDERS: ATTEND Surgery
DX: Z48.815 Encounter for surgical aftercare following surgery on the digestive system (principal); K21.9 Gastro-esophageal reflux disease without esophagitis
CPT/HCPCS: 99211

== ENCOUNTER → 2023-06-26 | Outpatient (CLI) | payer MEDICARE ==
[2023-06-26 13:24] VITALS: PULSE 16; RESP 16
--- NOTE | 2023-06-26 13:40 | P.PAINPG ---
PQRS Measure Charge Sheet Comment: HISTORY OF PRESENT ILLNESS: A 58 yr old female as a referral from Dr Quiroz presents today w severe and chronic LBP secondary to L4-S1 PCDF for evaluation. Pt states pain level is provoked at 6 /10 in intensity, constant, localized in the lumbar spine, predominantly axial, stabbing in character w occasional shooting pain towards the buttocks and LLE. Pain is provoked by standing for periods > 15 min. Pain is alleviated by PT integrated w massage x 2 wks in Mar 2023 which was interrupted due to out of town plans, physician guided home exercises/ stretches daily times since May 2023. heat, medications (Oakdale, Soma), repositioning and rest . Oswestry axial pain score at 22. PMH: OA, Nephrolithiasis, Obesity PSH: Thyroplasty (2014), LapBand (2011), Panniculectomy (2020), Section, R Knee Arthroscopies, R Knee (Partial, Total) Replacement, L RCT Repair, Tubal Ligation SH: Negative x3 FH: Mo- CVA. Fa- CVA, Prostate CA. Sis- Brain Aneurysm All: See list Meds: See list REVIEW OF ORGAN SYSTEMS: CONSTITUTIONAL: No fevers or chills. No recent weight loss. NEUROLOGICAL: + numbness and tingling along the distal extremities. No seizure disorders or headaches. MUSCULOSKELETAL: + pain PSYCHIATRIC: Denies current depression or suicidal thoughts. Physical Examinations : Constitutional : Cooperative , not in acute distress . Neurologic : Cranial nerve II to XII intact. No focal neurological deficits. Psychiatric : alert & oriented x 3. Matching mood & appropriate affect. Judgment & insight intact. Musculoskeletal : Cervical Spine Motor strength in the deltoid and biceps: Normal right side. Normal Left side Motor strength biceps and the wrist extensors: Normal right side . Normal left side Motor strength in the triceps muscle: Normal right side. Normal left side Deep tendon reflexes: Normal at the biceps. Normal at Brachioradialis. Normal at triceps Vertebral body tenderness to deep palpation over Cervical facet loading test: positive bilaterally Spurling test: positive bilaterally Neck distraction test: positive bilaterally Marissa sign: positive bilaterally Lumbar spine +Incisional scar intact Motor strength lower extremities ,thigh and legs 5/5 Right side , 5/5 Left side Deep tendon reflexes : Normal Knee Jerk. Normal Ankle Jerk Vertebral body tenderness over Gilman Test positive Lumbar facet Loading Test: positive Right / positive Left Range of motion of the lumbar spine Flexion 30 degrees, extension 10 degrees Straight Leg Raise test: Left/ Right positive at degrees Cody test: positive right / positive left. Severe tenderness over the Sacroiliac joint on the Right / Left sides Gaenslen test: positive bilaterally Seated flexion test: positive bilaterally. Sacral spine : Severe tenderness over the Sacroiliac joint: right side / left side Range of motion: Flexion of the lumbar spine <60 degrees Range of motion: Extension of the lumbar spine <20 degrees Gaenslen's Test positive on L Cody test: positive right side / left side Thigh Thrust Test +L positivel Sacral Thrust Test Imaging: MRI non contrast of the lumbar spine from 04/26/23 reviewed Assessment/ Plan : L4-S1 PCDF post laminectomy syndrome, L Sacroiliitis Recommendation of L SI injection #1. May need a series of injections for optimal pain relief. Risks, benefits of procedure discussed and patient verbalized understanding. Admits to anti- coagulant use or medical history of diabetes. Protocol for discontinuation/ continuation of medications karen procedure discussed. All questions answered. I have spent greater than 30 minutes on patient care today. Dr Doran was available by phone for the evaluation of this patient. The time was used to review the medical records including relevant urine studies and Prescription history (MAPs), review of the available imaging, evaluation and examination of the patient, coordination of care with the medical staff and if applicable referring physicians, as well as creation of the medical record PQRS Narrative: Smoking Status Never smoker Hx Alcohol Use (MH) No Home Medications: Ambulatory Orders HYDROcodone/APAP 5-325MG [[place] 5-325] 1 tab PO TID PRN 05/08/18 Controlled Substance Measures - Controlled Substance Measures Is patient prescribed a controlled substance at discharge?: No
== END ==
LOC: PNWHC3 12:52
PROVIDERS: ATTEND Specialist
DX: M96.1 Postlaminectomy syndrome, not elsewhere classified (principal); M46.1 Sacroiliitis, not elsewhere classified; M25.9 Joint disorder, unspecified; M43.22 Fusion of spine, cervical region; M43.27 Fusion of spine, lumbosacral region; G89.29 Other chronic pain; M54.50 Low back pain, unspecified
CPT/HCPCS: 99202

== ENCOUNTER 2023-07-06 17:01 | Emergency (ER) | payer MEDICARE ==
[2023-07-06 17:18] VITALS: RESP 18; TEMP 97.2
[2023-07-06] MEDS ORDERED: IOPAMIDOL CONTRAST (ORAL USE) VIAL PO PRN (18:17)
--- NOTE | 2023-07-06 18:26 | ED ---
Abdominal Pain HPI - General Chief Complaint: Abdominal Pain Stated Complaint: Abd pain Time Seen by Provider: 07/06/23 17:26 Source: patient Mode of arrival: ambulatory Limitations: no limitations - History of Present Illness Initial Comments: Patient is 58-year-old woman here with complaint of diffuse abdominal pain and feeling of constipation. She states that it has been approximately 2 weeks since having regular bowel movement. MD Complaint: abdominal pain Onset/Timin -: week(s) Location: periumbilical Radiation: none Migration to: no migration Quality: dull Consistency: constant Improves With: nothing Worsens With: nothing Associated Symptoms: nausea, vomiting - Related Data Home Medications Medication Instructions Recorded Confirmed HYDROcodone/APAP 10-325MG [Cosmos 1 tab PO TID PRN 07/08/23 07/08/23 10-325] carisoprodoL [Soma] 350 mg PO BID PRN 07/08/23 07/08/23 Previous Rx's Medication Instructions Recorded Acetaminophen Tab [Tylenol] 650 mg PO Q6H #30 tab 07/10/23 Docusate [Colace] 100 mg PO BID #20 capsule 07/10/23 Ibuprofen [Motrin] 600 mg PO Q6HR PRN #40 tab 07/10/23 Allergies Allergy/AdvReac Type Severity Reaction Status Date / Time No Known Allergies Allergy Verified 07/10/23 08:56 Review of Systems ROS Statement: Those systems with pertinent positive or pertinent negative responses have been documented in the HPI. ROS Other: All systems not noted in ROS Statement are negative. Constitutional: Denies: fever, chills Respiratory: Denies: cough, dyspnea Cardiovascular: Denies: chest pain, palpitations, edema Gastrointestinal: Reports: abdominal pain, nausea, vomiting. 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 PANNI 08/08/2020. panniculectomy 08-08-20 Past Anesthesia/Blood Transfusion Reactions: No Reported Reaction Past Psychological History: No Psychological Hx Reported Smoking Status: Never smoker Past Alcohol Use History: None Reported Past Drug Use History: None Reported - Past Family History Mother Family Medical History: CVA/TIA Father Family Medical History: Cancer, CVA/TIA Additional Family Medical History / Comment(s): PROSTATE CANCER Sister(s) Additional Family Medical History / Comment(s): BRAIN ANEURYSM General Exam Limitations: no limitations General appearance: alert, in no apparent distress Head exam: Present: atraumatic, normocephalic Eye exam: Present: normal appearance. Absent: scleral icterus, conjunctival injection Neck exam: Present: normal inspection Respiratory exam: Present: normal lung sounds bilaterally. Absent: respiratory distress, wheezes, rales, rhonchi, stridor Cardiovascular Exam: Present: regular rate, normal rhythm, normal heart sounds. Absent: systolic murmur, diastolic murmur, rubs, gallop GI/Abdominal exam: Present: soft, tenderness. Absent: distended, guarding, rebound, rigid, mass Extremities exam: Present: normal inspection, normal capillary refill. Absent: pedal edema, calf tenderness Back exam: Present: normal inspection. Absent: CVA tenderness (R), CVA tenderness (L) Neurological exam: Present: alert Skin exam: Present: warm, dry, intact, normal color. Absent: rash Course Vital Signs 07/06/23 07/06/23 07/06/23 17:04 18:39 20:55 Temperature 97.2 F L Pulse Rate 68 68 63 Respiratory 18 18 18 Rate Blood Pressure 127/77 121/77 129/76 O2 Sat by Pulse 97 98 97 Oximetry 07/06/23 23:57 Temperature Pulse Rate 62 Respiratory 18 Rate Blood Pressure 119/80 O2 Sat by Pulse 94 L Oximetry Medical Decision Making - Medical Decision Making The patient had CT scan of the abdomen and pelvis which I interpreted as showing moderate degree of constipation. No bowel obstruction or free air. Was pt. sent in by a medical professional or institution ([facility], PHARMACIST HELPER, urgent care, hospital, or fpc...) When possible be specific @ -[No] Did you speak to anyone other than the patient for history (EMS, parent, family, police, friend...)? What history was obtained from this source @ -[No] Did you review nursing and triage notes (agree or disagree)? Why? @ -[I reviewed and agree with nursing and triage notes] Were old charts reviewed (outside hosp., previous admission, EMS record, old EKG, old radiological studies, urgent care reports/EKG's, fpc records)? Report findings @ -[No old charts were reviewed] Differential Diagnosis (chest pain, altered mental status, abdominal pain women, abdominal pain men, vaginal bleeding, weakness, fever, dyspnea, syncope, headache, dizziness, GI bleed, back pain, seizure, CVA, palpatations, mental health, musculoskeletal)? @ -[Differential Abdominal Pain Women: Appendicitis, Cholecystitis, diverticulosis, ischemic bowel, pancreatitis, hepatitis, UTI, gastroenteritis, AAA, incarcerated hernia, bowel obstruction, constipation, inflammatory bowel, hepatitis, peptic ulcer disease, splenic infarction, perforated viscus, vulvitis, ovarian torsion, PID, kidney stone, placenta abruption, this is not meant to be an all-inclusive list EKG interpreted by me (3pts min.). @ -[As above] X-rays interpreted by me (1pt min.). @ -[None done] CT interpreted by me (1pt min.). @ -I interpreted as above U/S interpreted by me (1pt. min.). @ -[None done] What testing was considered but not performed or refused? (CT, X-rays, U/S, labs)? Why? @ -[None] What meds were considered but not given or refused? Why? @ -[None] Did you discuss the management of the patient with other professionals (professionals i.e. ANA Jay, PHARMACIST HELPER, lab, RT, psych nurse, social sciences lecturer, lung puller, teacher, sanitation officer, casework supervisor)? Give summary @ -[No] Was smoking cessation discussed for >3mins.? @ -[No] Was critical care preformed (if so, how long)? @ -[No] Were there social determinants of health that impacted care today? How? (Homelessness, low income, unemployed, alcoholism, drug addiction, giraldo sportation, low edu. Level, literacy, decrease access to med. care, intermediate, rehab)? @ -[No] Was there de-escalation of care discussed even if they declined (Discuss DNR or withdrawal of care, Hospice)? DNR status @ -[No] What co-morbidities impacted this encounter? (DM, HTN, Smoking, COPD, CAD, Canc er, CVA, ARF, Chemo, Hep., AIDS, mental health diagnosis, sleep apnea, morbid obesity)? @ -[Previous bariatric surgery Was patient admitted / discharged? Hospital course, mention meds given and route , prescriptions, significant lab abnormalities, going to OR and other pertinent info. @ -[Patient is 58-year-old woman here to have evaluation of abdominal pain. There is some tenderness on the exam and therefore the patient had CT scan which does not show acute surgical condition but does appear consistent with constipation. Discussed treatment options with patient including disimpaction, enema, oral medications, and the patient would like to try oral medication at home. Discussed appropriate further care and follow-up as well as return parameters. Undiagnosed new problem with uncertain prognosis? @ -[No] Drug Therapy requiring intensive monitoring for toxicity (Heparin, Nitro, Insulin, Cardizem)? @ -[No] Were any procedures done? @ -[No] Diagnosis/symptom? @ -[Acute abdominal pain Constipation Acute, or Chronic, or Acute on Chronic? @ -Acute Uncomplicated (without systemic symptoms) or Complicated (systemic symptoms)? @ -[Uncomplicated Side effects of treatment? @ -[No] Exacerbation, Progression, or Severe Exacerbation? @ -[No] Poses a threat to life or bodily function? How? (Chest pain, USA, ID, pneumonia, PE, COPD, DKA, ARF, appy, cholecystitis, CVA, Diverticulitis, Homicidal, Suicidal, threat to staff... and all critical care pts) @ -[No] - Lab Data Result diagrams: 07/06/23 18:27 07/06/23 18:27 Lab Results 07/06/23 07/06/23 07/06/23 Range/Units 18:27 18:27 18:27 WBC 5.9 (3.8-10.6) k/uL RBC 4.41 (3.80-5.40) m/uL Hgb 13.6 (11.4-16.0) gm/dL Hct 42.4 (34.0-46.0) % MCV 96.3 (80.0-100.0) fL MCH 30.8 (25.0-35.0) pg MCHC 32.0 (31.0-37.0) g/dL RDW 14.0 (11.5-15.5) % Plt Count 267 (150-450) k/uL MPV 7.9 Neutrophils % 60 % Lymphocytes % 31 % Monocytes % 6 % Eosinophils % 2 % Basophils % 1 % Neutrophils # 3.5 (1.3-7.7) k/uL Lymphocytes # 1.8 (1.0-4.8) k/uL Monocytes # 0.3 (0-1.0) k/uL Eosinophils # 0.1 (0-0.7) k/uL Basophils # 0.0 (0-0.2) k/uL Sodium 138 (137-145) mmol/L Potassium 5.0 (3.5-5.1) mmol/L Chloride 103 (98-107) mmol/L Carbon Dioxide 29 (22-30) mmol/L Anion Gap 6 mmol/L BUN 13 (7-17) mg/dL Creatinine 0.61 (0.52-1.04) mg/dL Est GFR (CKD-EPI)AfAm >90 (>60 ml/min/1.73 sqM) Est GFR (CKD-EPI)NonAf >90 (>60 ml/min/1.73 sqM) Glucose 94 (74-99) mg/dL Plasma Lactic Acid Mayur 1.0 (0.7-2.0) mmol/L Calcium 9.7 (8.4-10.2) mg/dL Total Bilirubin 0.5 (0.2-1.3) mg/dL AST 23 (14-36) U/L ALT 10 (4-34) U/L Alkaline Phosphatase 74 (38-126) U/L Total Protein 7.3 (6.3-8.2) g/dL Albumin 4.2 (3.5-5.0) g/dL Amylase 50 (30-110) U/L Lipase 36 (23-300) U/L Urine Color Urine Appearance (Clear) Urine pH (5.0-8.0) Ur Specific Rochelle (1.001-1.035) Urine Protein (Negative) Urine Glucose (UA) (Negative) Urine Ketones (Negative) Urine Blood (Negative) Urine Nitrite (Negative) Urine Bilirubin (Negative) Urine Urobilinogen (<2.0) mg/dL Ur Leukocyte Esterase (Negative) Urine RBC (0-5) /hpf Urine WBC (0-5) /hpf Ur Squamous Epith Cells (0-4) /hpf Calcium Oxalate Crystal (None) /hpf Urine Mucus (None) /hpf 07/06/23 Range/Units 18:39 WBC (3.8-10.6) k/uL RBC (3.80-5.40) m/uL Hgb (11.4-16.0) gm/dL Hct (34.0-46.0) % MCV (80.0-100.0) fL MCH (25.0-35.0) pg MCHC (31.0-37.0) g/dL RDW (11.5-15.5) % Plt Count (150-450) k/uL MPV Neutrophils % % Lymphocytes % % Monocytes % % Eosinophils % % Basophils % % Neutrophils # (1.3-7.7) k/uL Lymphocytes # (1.0-4.8) k/uL Monocytes # (0-1.0) k/uL Eosinophils # (0-0.7) k/uL Basophils # (0-0.2) k/uL Sodium (137-145) mmol/L Potassium (3.5-5.1) mmol/L Chloride (98-107) mmol/L Carbon Dioxide (22-30) mmol/L Anion Gap mmol/L BUN (7-17) mg/dL Creatinine (0.52-1.04) mg/dL Est GFR (CKD-EPI)AfAm (>60 ml/min/1.73 sqM) Est GFR (CKD-EPI)NonAf (>60 ml/min/1.73 sqM) Glucose (74-99) mg/dL Plasma Lactic Acid Mayur (0.7-2.0) mmol/L Calcium (8.4-10.2) mg/dL Total Bilirubin (0.2-1.3) mg/dL AST (14-36) U/L ALT (4-34) U/L Alkaline Phosphatase (38-126) U/L Total Protein (6.3-8.2) g/dL Albumin (3.5-5.0) g/dL Amylase (30-110) U/L Lipase (23-300) U/L Urine Color Colorless Urine Appearance Cloudy H (Clear) Urine pH 5.5 (5.0-8.0) Ur Specific Rochelle 1.023 (1.001-1.035) Urine Protein Negative (Negative) Urine Glucose (UA) Negative (Negative) Urine Ketones Negative (Negative) Urine Blood Moderate H (Negative) Urine Nitrite Negative (Negative) Urine Bilirubin Negative (Negative) Urine Urobilinogen <2.0 (<2.0) mg/dL Ur Leukocyte Esterase Moderate H (Negative) Urine RBC 2 (0-5) /hpf Urine WBC 8 H (0-5) /hpf Ur Squamous Epith Cells 8 H (0-4) /hpf Calcium Oxalate Crystal Few H (None) /hpf Urine Mucus Rare H (None) /hpf Disposition Clinical Impression: Constipation, Abdominal pain Disposition: HOME SELF-CARE Condition: Good Instructions (If sedation given, give patient instructions): Constipation (ED), Abdominal Pain (ED) Is patient prescribed a controlled substance at d/c from ED?: No Referrals: Arron Blackburn MD [Primary Care Provider] - 1-2 days
[2023-07-06] MEDS: ONDANSETRON 4 MG/2 ML VIAL IVP STA (18:35)
[2023-07-06] MEDS: SODIUM CHLORIDE 0.9% 1,000 ML IV STA (18:37)
[2023-07-06] MEDS: MORPHINE SULFATE 4 MG/ML SYRINGE IV STA ×2 (18:38→21:50)
[2023-07-06] MEDS: SODIUM CHLORIDE 0.9% 1,000 ML IV ONE (18:38)
[2023-07-06 18:55] LABS: Basophils % (A) 1 %; Eosinophils # (A) 0.1 k/uL (0-0.7); Eosinophils % (A) 2 %; HCT 42.4 % (34.0-46.0); HGB 13.6 gm/dL (11.4-16.0); Lymphocytes # (A) 1.8 k/uL (1.0-4.8); Lymphocytes % (A) 31 %; MCH 30.8 pg (25.0-35.0); MCV 96.3 fL (80.0-100.0); Mean Platelet Volume 7.9; Monocytes # (A) 0.3 k/uL (0-1.0); Monocytes % (A) 6 %; Neutrophils # (A) 3.5 k/uL (1.3-7.7); Neutrophils % (A) 60 %; Platelet Count 267 k/uL (150-450); RBC 4.41 m/uL (3.80-5.40); WBC 5.9 k/uL (3.8-10.6)
[2023-07-06 18:58] LABS: Appearance,Urine Cloudy (Clear); Bilirubin,Urine Negative (Negative); Blood,Urine Moderate (Negative); Calcium Oxalate Crystals,Urine Few /hpf; Color,Urine Colorless; Glucose,Urine (UA) Negative (Negative); Ketones,Urine Negative (Negative); Leukocyte Esterase,Urine Moderate (Negative); Mucus,Urine Rare /hpf; Nitrite,Urine Negative (Negative); PH, Urine 5.5 (5.0-8.0); Protein,Urine Negative (Negative); RBC,Urine 2 /hpf (0-5); Specific Gravity,Urine 1.023 (1.001-1.035); Squamous Epithelial Cell,Urine 8 /hpf (0-4); Urobilinogen,Urine <2.0 mg/dL (<2.0); WBC,Urine 8 /hpf (0-5)
[2023-07-06 18:58] LABS: ALT 10 U/L (4-34); AST 23 U/L (14-36); African American GFR (CKD) >90 (>60 ml/min/1.73 sqM); Albumin 4.2 g/dL (3.5-5.0); Alkaline Phosphatase 74 U/L (38-126); Amylase 50 U/L (30-110); Anion Gap 6 mmol/L; Blood Urea Nitrogen 13 mg/dL (7-17); Calcium 9.7 mg/dL (8.4-10.2); Carbon Dioxide 29 mmol/L (22-30); Chloride 103 mmol/L (98-107); Glucose 94 mg/dL (74-99); Lipase 36 U/L (23-300); Non-African American GFR(CKD) >90 (>60 ml/min/1.73 sqM); Sodium 138 mmol/L (137-145); Total Bilirubin 0.5 mg/dL (0.2-1.3); Total Protein 7.3 g/dL (6.3-8.2)
--- NOTE | 2023-07-06 22:59 | CT ---
EXAMINATION TYPE: CT abdomen pelvis wo con CT DLP: 697 mGycm, Automated exposure control for dose reduction was used. DATE OF EXAM: 07/06/2023 8:46 PM COMPARISON: None. CLINICAL INDICATION:Female, 58 years old with history of abdominal pain; pt c.o of lower abd pain and increases when she takes a deep breath pt has a hx of lap band surgery TECHNIQUE: Axial CT of the abdomen and pelvis. Sagittal and coronal reformats were created on a [employer] workstation. Contrast used: mL of , (none if empty) Oral contrast used: with Oral Contrast (none if empty) FINDINGS: LOWER CHEST: Lung bases are clear. Heart size upper limits of normal. No pericardial effusion. There is a sliding hiatal hernia suspected and there is contrast seen in the distal esophagus which may be from reflux or dysmotility. Wall also seems slightly thickened which could be from esophagitis. ABDOMEN LIVER: Liver appears enlarged, right lobe is 19 cm. Otherwise unremarkable. GALLBLADDER AND BILE DUCTS: Mildly distended gallbladder without evidence of calcified stones or karen cholecystic inflammation. No gross evidence of biliary ductal dilatation. PANCREAS: Fatty infiltrated without acute findings. SPLEEN: Unremarkable. ADRENAL GLANDS: Unremarkable. KIDNEYS AND URETERS: No evidence of renal calculi. Mildly prominent left extrarenal pelvis without cl ear evidence of ureteral calculi. There are several pelvic calcifications suggestive of phleboliths. PELVIS BLADDER: Mildly distended, otherwise grossly unremarkable. REPRODUCTIVE: Anteverted uterus is present. Presumed left ovary appears unremarkable. The right ovary is not visualized. ABDOMEN & PELVIS STOMACH AND BOWEL: Postoperative changes in the GE junction region with a lap band present. There is contrast and some gas in the lumen of the stomach beyond the band without abnormal distention seen. Contrast traverses multiple small bowel loops without evidence of obstruction. Nonopacified, decompre ssed distal small bowel loops are also present. There is some fecalization of the contents of the dis brandon-most small bowel suggestive of stasis. Appendix is not visualized. There is moderate stool seen t hroughout the colon without acute inflammatory process identified. PERITONEUM/RETROPERITONEUM: No evidence of pneumoperitoneum or free fluid. VASCULATURE: Mild to moderate atherosclerotic calcifications are present throughout the abdominal aor ta and its branches. No evidence of aortic aneurysm. LYMPH NODES: No enlarged nodes by CT size criteria. SOFT TISSUE/ABDOMINAL WALL: There is LAP-BAND reservoir in the left anterior abdominal wall. Its tubi ng enters the peritoneal cavity and courses towards the right, adjacent to the liver, before looping and returning to connect with the lap band; the parts appear intact. MUSCULOSKELETAL: Mild to moderate diffuse degenerative changes, including throughout the lumbar spine . There are bilateral pedicle screws and posterior fixation rods L4-L5-S1 which appear intact. Associ ated laminectomy changes. IMPRESSION: 1. No evidence of urinary tract calculi or obstructive uropathy. 2. Hepatomegaly. 3. Lap band in place. There is suspicion for sliding hiatal hernia above the lap band. Contrast is s een in the distal portions of the esophagus which could be from reflux or dysmotility. Esophageal wal l also seems slightly thickened which could be from esophagitis. 4. Contrast is seen in the stomach beyond the band and throughout the proximal small bowel loops wit hout evidence of obstruction. 5. Moderate stool throughout the colon with evidence of fecal stasis involving the distal-most small bowel. Correlate for constipation.
[2023-07-06] MEDS: PEG 3350 (236 GM/BTL) + LYTES 4,000 ML BOTTLE PO ONE (23:54)
[2023-07-07] VITALS: BP 119/80; PULSE 62
== END 2023-07-06 23:59 | disposition home or self-care (01) ==
LOC: EC 17:01
DX: K59.00 Constipation, unspecified (principal)
CPT/HCPCS: 36415; 80053; 82150; 83605; 83690; 85025; 81001; 74176; 99284; 96374; 96375; 96376; 96361; J2270; J2405

== ENCOUNTER 2023-07-08 11:22 | Observation (INO) | payer MEDICARE ==
[2023-07-08] MEDS: SODIUM CHLORIDE 0.9% 1,000 ML IV ONE (13:26)
[2023-07-08 13:34] LABS: Basophils % (A) 0 %; Eosinophils % (A) 1 %; HCT 41.6 % (34.0-46.0); HGB 13.1 gm/dL (11.4-16.0); Lymphocytes # (A) 1.3 k/uL (1.0-4.8); Lymphocytes % (A) 19 %; MCH 30.3 pg (25.0-35.0); MCHC 31.6 g/dL (31.0-37.0); MCV 95.9 fL (80.0-100.0); Mean Platelet Volume 7.6; Monocytes # (A) 0.3 k/uL (0-1.0); Monocytes % (A) 5 %; Neutrophils # (A) 4.8 k/uL (1.3-7.7); Neutrophils % (A) 74 %; Platelet Count 258 k/uL (150-450); RBC 4.33 m/uL (3.80-5.40); WBC 6.5 k/uL (3.8-10.6)
--- NOTE | 2023-07-08 13:39 | ED ---
Abdominal Pain HPI - General Chief Complaint: Altered Mental Status Stated Complaint: Abd Pain Time Seen by Provider: 07/08/23 12:49 Source: patient, family, RN notes reviewed Mode of arrival: wheelchair Limitations: no limitations - History of Present Illness Initial Comments: This is a 58-year-old female who presents to the emergency department for abd ominal pain and constipation. Patient states she has not had a bowel movement in several weeks. She was evaluated in the emergency department for abdominal pain and constipation 2 days ago and was given GoLytely. States that she has not had a bowel movement despite drinking the GoLytely. She continues to have severe pain in the abdomen. Describes pain as being in the upper abdomen. Patient had a follow up appointment with Dr. Page today with plan to do a HIDA scan, however she started to act confused and was subsequently advised to come to the emergency department. In discussion with her daughter, states that she was with her after the appointment and she is known to get confused from time to time after taking her pain medication. Patient does not currently feel confused. She is concerned about her ongoing upper abdominal pain over the last couple of weeks. She is unable to eat and incredibly nauseous. She takes [place] 10 mg on a chronic basis, which is not managing this pain. MD Complaint: abdominal pain - Related Data Home Medications Medication Instructions Recorded Confirmed HYDROcodone/APAP 5-325MG [[place] 1 tab PO TID PRN 05/08/18 07/08/23 5-325] Allergies Allergy/AdvReac Type Severity Reaction Status Date / Time No Known Allergies Allergy Verified 07/08/23 11:52 Review of Systems ROS Statement: Those systems with pertinent positive or pertinent negative responses have been documented in the HPI. ROS Other: All systems not noted in ROS Statement are negative. 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 PANNI 08/08/2020. panniculectomy 08-08-20 Past Anesthesia/Blood Transfusion Reactions: No Reported Reaction Past Psychological History: No Psychological Hx Reported Smoking Status: Never smoker Past Alcohol Use History: None Reported Past Drug Use History: None Reported - Past Family History Mother Family Medical History: CVA/TIA Father Family Medical History: Cancer, CVA/TIA Additional Family Medical History / Comment(s): PROSTATE CANCER Sister(s) Additional Family Medical History / Comment(s): BRAIN ANEURYSM General Exam Limitations: no limitations General appearance: alert, in no apparent distress Head exam: Present: atraumatic, normocephalic, normal inspection Respiratory exam: Present: normal lung sounds bilaterally. Absent: respiratory distress, wheezes, rales, rhonchi, stridor Cardiovascular Exam: Present: regular rate, normal rhythm, normal heart sounds. Absent: systolic murmur, diastolic murmur, rubs, gallop, clicks GI/Abdominal exam: Present: soft, tenderness (upper abdomen), normal bowel sound s. Absent: distended Neurological exam: Present: alert, oriented X3, CN II-XII intact Psychiatric exam: Present: normal affect, normal mood Skin exam: Present: warm, dry, intact, normal color. Absent: rash Course Vital Signs 07/08/23 07/08/23 07/08/23 11:54 12:48 16:09 Temperature 98.2 F Pulse Rate 81 73 64 Respiratory 16 18 18 Rate Blood Pressure 120/78 135/83 139/76 O2 Sat by Pulse 97 98 95 Oximetry Medical Decision Making - Medical Decision Making This is a 58 year old female who presents to the emergency department for abdominal pain and constipation. Was pt. sent in by a medical professional or institution? @ -Dr. Page Did you speak to anyone other than the patient for history? @ -No Did you review nursing and triage notes? @ -Yes, and I agree, it is accurate with regards to the patient's symptoms. Were old charts reviewed? @ -CT scan of the abdomen and pelvis from 07/06/23 demonstrating the Lap-Band in place with suspicion for sliding hiatal hernia above the Lap-Band. Contrast is seen in the stomach beyond the band and throughout the proximal small bowel loops without evidence of obstruction. Moderate stool throughout the colon with evidence of fecal stasis involving the distal most small bowel is also present. Differential Diagnosis? @ -Differential Abdominal Pain Women: Appendicitis, Cholecystitis, diverticulosis, ischemic bowel, pancreatitis, hepatitis, UTI, gastroenteritis, AAA, incarcerated hernia, bowel obstruction, constipation, inflammatory bowel, hepatitis, peptic ulcer disease, splenic infa rction, perforated viscus, vulvitis, ovarian torsion, PID, kidney stone, placenta abruption, this is not meant to be an all-inclusive list EKG interpreted by me (3pts min.)? @ -EKG interpreted by me demonstrating the following: Sinus rhythm. Ventricular rate 66 bpm, DE interval 163 ms, QRS duration 87 ms, QTc 410 ms. X-rays interpreted by me (1pt min.)? @ -KUB x-ray obtained. My interpretation identifies no dilation of large or small bowel loops. CT interpreted by me (1pt min.)? @ -Not obtained U/S interpreted by me (1pt. min.)? @ -Not obtained What testing was considered but not performed? (CT, X-rays, U/S, labs)? Why? @ -None What meds were considered but not given? Why? @ -None Did you discuss the management of the patient with other professionals? @ -Yes, Dr. Page, who advised that the patient was confused at the office but was supposed to have a HIDA scan today. Advised a CT scan with oral contrast and patient can be discharged home afterwards if able to, but could also be admitted if symptoms are not controllable. Did you reconcile home meds? @ -No Was smoking cessation discussed for >3mins.? @ -No Was critical care preformed (if so, how long)? @ -No Were there social determinants of health that impacted care today? How? (Homelessness, low income, unemployed, alcoholism, drug addiction, transp ortation, low edu. Level, literacy, decrease access to med. care, alf, rehab)? @ -No Was there de-escalation of care discussed even if they declined? (Discuss DNR or withdrawal of care, Hospice)? @ -No What co-morbidities impacted this encounter? (DM, HTN, Smoking, COPD, CAD, Cancer, CVA, Hep., AIDS, mental health diagnosis, sleep apnea, morbid obesity)? @ -None Was patient admitted / discharged? @ -Admitted. Patient sent to the emergency department for concerns of confusion. At the time of evaluation, patient was not exhibiting any confusion or neurological deficits. Her daughter states that this does tend to happen after taking doses of her pain medication. Lab work unremarkable. Urinalysis not overtly suggestive of infection, but was sent for culture. CT scan of the abdomen and pelvis obtained yesterday demonstrates suspicion of sliding hiatal hernia above the Lap-Band as well as moderate stool throughout the colon with evidence of fecal stasis involving the distal most small bowel. Gallbladder was also distended without evidence of gallstones or sludge. KUB x-ray obtained today demonstrates gas and fecal material in the bowels without evidence of obstructive process. She was given a milk molasses enema, but did not produce a bowel movement or even have the urge to go. Case discussed with Dr. Page, general surgery, who requested a CT scan with oral contrast and inquired about a HIDA scan. Nursing staff discussed the HIDA scan with nuclear medicine, who advised that they cannot do this until tomorrow morning and requested patient be n.p.o. after midnight. They also advised no opioid medication after 2 AM. Discussed with the patient admission versus discharge home after CT scan with oral contrast. States that given her pain and inability to eat, she is not com fortable with discharge home at this time. She was subsequently admitted to general surgery for intractable abdominal pain and constipation. CT scan with oral contrast ordered and pending at the time of admission. HIDA scan ordered as well with tentative schedule for tomorrow. Consult placed for medicine for medical management. Undiagnosed new problem with uncertain prognosis? @ -None Drug Therapy requiring intensive monitoring for toxicity (Heparin, Nitro, Insulin, Cardizem)? @ -None Were any procedures done? @ -None Diagnosis/symptom? @ -Intractable abdominal pain Acute, or Chronic, or Acute on Chronic? @ -Acute Uncomplicated (without systemic symptoms) or Complicated (systemic symptoms)? @ -Complicated Side effects of treatment? @ -None Exacerbation, Progression, or Severe Exacerbation] @ -Not applicable Poses a threat to life or bodily function? @ -Yes This case was discussed in detail with the attending ED physician, Dr. Marcelo. Presentation, findings, and treatment plan discussed in detail as well. - Lab Data Result diagrams: 07/08/23 13:17 07/08/23 13:17 Lab Results 07/08/23 07/08/23 07/08/23 Range/Units 13:17 13:17 13:17 WBC 6.5 (3.8-10.6) k/uL RBC 4.33 (3.80-5.40) m/uL Hgb 13.1 (11.4-16.0) gm/dL Hct 41.6 (34.0-46.0) % MCV 95.9 (80.0-100.0) fL MCH 30.3 (25.0-35.0) pg MCHC 31.6 (31.0-37.0) g/dL RDW 14.0 (11.5-15.5) % Plt Count 258 (150-450) k/uL MPV 7.6 Neutrophils % 74 % Lymphocytes % 19 % Monocytes % 5 % Eosinophils % 1 % Basophils % 0 % Neutrophils # 4.8 (1.3-7.7) k/uL Lymphocytes # 1.3 (1.0-4.8) k/uL Monocytes # 0.3 (0-1.0) k/uL Eosinophils # 0.0 (0-0.7) k/uL Basophils # 0.0 (0-0.2) k/uL PT 9.9 L (10.0-12.5) sec INR 0.9 (<1.2) APTT 22.8 (22.0-30.0) sec Sodium 138 (137-145) mmol/L Potassium 4.7 (3.5-5.1) mmol/L Chloride 104 (98-107) mmol/L Carbon Dioxide 26 (22-30) mmol/L Anion Gap 8 mmol/L BUN 6 L (7-17) mg/dL Creatinine 0.58 (0.52-1.04) mg/dL Est GFR (CKD-EPI)AfAm >90 (>60 ml/min/1.73 sqM) Est GFR (CKD-EPI)NonAf >90 (>60 ml/min/1.73 sqM) Glucose 108 H (74-99) mg/dL Plasma Lactic Acid [place] (0.7-2.0) mmol/L Calcium 9.2 (8.4-10.2) mg/dL Magnesium 1.7 (1.6-2.3) mg/dL Total Bilirubin 0.3 (0.2-1.3) mg/dL AST 17 (14-36) U/L ALT 12 (4-34) U/L Alkaline Phosphatase 93 (38-126) U/L Troponin I (0.000-0.034) ng/mL Total Protein 7.0 (6.3-8.2) g/dL Albumin 4.0 (3.5-5.0) g/dL Amylase 44 (30-110) U/L Lipase 26 (23-300) U/L Urine Color Urine Appearance (Clear) Urine pH (5.0-8.0) Ur Specific [place] (1.001-1.035) Urine Protein (Negative) Urine Glucose (UA) (Negative) Urine Ketones (Negative) Urine Blood (Negative) Urine Nitrite (Negative) Urine Bilirubin (Negative) Urine Urobilinogen (<2.0) mg/dL Ur Leukocyte Esterase (Negative) Urine RBC (0-5) /hpf Urine WBC (0-5) /hpf Ur Squamous Epith Cells (0-4) /hpf Urine Bacteria (None) /hpf Urine Mucus (None) /hpf 07/08/23 07/08/23 07/08/23 Range/Units 13:17 13:17 13:25 WBC (3.8-10.6) k/uL RBC (3.80-5.40) m/uL Hgb (11.4-16.0) gm/dL Hct (34.0-46.0) % MCV (80.0-100.0) fL MCH (25.0-35.0) pg MCHC (31.0-37.0) g/dL RDW (11.5-15.5) % Plt Count (150-450) k/uL MPV Neutrophils % % Lymphocytes % % Monocytes % % Eosinophils % % Basophils % % Neutrophils # (1.3-7.7) k/uL Lymphocytes # (1.0-4.8) k/uL Monocytes # (0-1.0) k/uL Eosinophils # (0-0.7) k/uL Basophils # (0-0.2) k/uL PT (10.0-12.5) sec INR (<1.2) APTT (22.0-30.0) sec Sodium (137-145) mmol/L Potassium (3.5-5.1) mmol/L Chloride (98-107) mmol/L Carbon Dioxide (22-30) mmol/L Anion Gap mmol/L BUN (7-17) mg/dL Creatinine (0.52-1.04) mg/dL Est GFR (CKD-EPI)AfAm (>60 ml/min/1.73 sqM) Est GFR (CKD-EPI)NonAf (>60 ml/min/1.73 sqM) Glucose (74-99) mg/dL Plasma Lactic Acid [place] 1.6 (0.7-2.0) mmol/L Calcium (8.4-10.2) mg/dL Magnesium (1.6-2.3) mg/dL Total Bilirubin (0.2-1.3) mg/dL AST (14-36) U/L ALT (4-34) U/L Alkaline Phosphatase (38-126) U/L Troponin I <0.012 (0.000-0.034) ng/mL Total Protein (6.3-8.2) g/dL Albumin (3.5-5.0) g/dL Amylase (30-110) U/L Lipase (23-300) U/L Urine Color Colorless Urine Appearance Cloudy H (Clear) Urine pH 8.0 (5.0-8.0) Ur Specific [place] 1.013 (1.001-1.035) Urine Protein Negative (Negative) Urine Glucose (UA) Negative (Negative) Urine Ketones Negative (Negative) Urine Blood Small H (Negative) Urine Nitrite Negative (Negative) Urine Bilirubin Negative (Negative) Urine Urobilinogen <2.0 (<2.0) mg/dL Ur Leukocyte Esterase Large H (Negative) Urine RBC 11 H (0-5) /hpf Urine WBC 31 H (0-5) /hpf Ur Squamous Epith Cells 23 H (0-4) /hpf Urine Bacteria Occasional H (None) /hpf Urine Mucus Rare H (None) /hpf - Radiology Data Radiology results: report reviewed, image reviewed Disposition Clinical Impression: Intractable abdominal pain, Constipation Disposition: ADMITTED IP TO THIS [facility] Referrals: Arron Blackburn MD [Primary Care Provider] - 1-2 days Time of Disposition: 16:59
[2023-07-08] MEDS: HYDROmorphone 1 MG/ML 1 ML SYRINGE IVP STA ×2 (13:40→15:43)
[2023-07-08 13:42] LABS: Appearance,Urine Cloudy (Clear); Bacteria,Urine Occasional /hpf; Bilirubin,Urine Negative (Negative); Blood,Urine Small (Negative); Color,Urine Colorless; Glucose,Urine (UA) Negative (Negative); Ketones,Urine Negative (Negative); Leukocyte Esterase,Urine Large (Negative); Mucus,Urine Rare /hpf; Nitrite,Urine Negative (Negative); Protein,Urine Negative (Negative); RBC,Urine 11 /hpf (0-5); Specific Gravity,Urine 1.013 (1.001-1.035); Squamous Epithelial Cell,Urine 23 /hpf (0-4); Urobilinogen,Urine <2.0 mg/dL (<2.0); WBC,Urine 31 /hpf (0-5)
[2023-07-08 13:44] LABS: ALT 12 U/L (4-34); AST 17 U/L (14-36); African American GFR (CKD) >90 (>60 ml/min/1.73 sqM); Alkaline Phosphatase 93 U/L (38-126); Amylase 44 U/L (30-110); Anion Gap 8 mmol/L; Blood Urea Nitrogen 6 mg/dL (7-17); Calcium 9.2 mg/dL (8.4-10.2); Carbon Dioxide 26 mmol/L (22-30); Chloride 104 mmol/L (98-107); Glucose 108 mg/dL (74-99); Lipase 26 U/L (23-300); Magnesium 1.7 mg/dL (1.6-2.3); Non-African American GFR(CKD) >90 (>60 ml/min/1.73 sqM); Potassium 4.7 mmol/L (3.5-5.1); Sodium 138 mmol/L (137-145); Total Bilirubin 0.3 mg/dL (0.2-1.3)
[2023-07-08 13:46] LABS: INR 0.9 (<1.2); Partial Thromboplastin Time 22.8 sec (22.0-30.0); Prothrombin Time 9.9 sec (10.0-12.5)
--- NOTE | 2023-07-08 13:53 | XR ---
EXAMINATION TYPE: XR KUB DATE OF EXAM: 07/08/2023 COMPARISON: NONE HISTORY: Pain TECHNIQUE: Single supine KUB image of the abdomen is obtained FINDINGS: Small bowel demonstrates no evidence for dilatation or air fluid levels. Gas and fecal material is seen in non-distended colon. No convincing evidence for pneumoperitoneum. Gastric banding device is in place. No unusual calcifications. The lung bases are clear. The osseous structures are intact. Postoperative changes of decompressive laminectomy. IMPRESSION: 1. Overall nonobstructive bowel gas pattern.
[2023-07-08] MEDS ORDERED: IOPAMIDOL CONTRAST (ORAL USE) VIAL PO PRN (16:40)
[2023-07-08] MEDS ORDERED: ACETAMINOPHEN TAB 325 MG TAB PO PRN (16:59)
[2023-07-08] MEDS ORDERED: HYDROmorphone 0.5 MG/0.5 ML SYRINGE IVP PRN (16:59)
[2023-07-08] MEDS ORDERED: NALOXONE 0.4 MG/ML 1 ML VIAL IV PRN (16:59)
[2023-07-08] MEDS: SODIUM CHLORIDE 0.9% 1,000 ML IV SCH (17:30)
[2023-07-08] MEDS: NA PHOS,M-B/NA PHOS,DI-BA 133 ML ENEMA RECTAL STA (18:02)
--- NOTE | 2023-07-08 19:36 | CT ---
EXAMINATION TYPE: CT abdomen pelvis w con CT DLP: 1146.3 mGycm, Automated exposure control for dose reduction was used. DATE OF EXAM: 07/08/2023 7:10 PM COMPARISON: CT abdomen pelvis most recent from 07/06/2023 CLINICAL INDICATION:Female, 58 years old with history of abdominal pain; right side abd pain. hx of l ap band TECHNIQUE: Axial CT abdomen pelvis w con;Sagittal and coronal reformats were created on a separate w orkstation. Contrast used:100 ml mL of Isovue 300 with IV Contrast, (none if empty) Oral contrast used: with Oral Contrast (none if empty) FINDINGS: LOWER CHEST: Unremarkable ABDOMEN LIVER: Unremarkable GALLBLADDER AND BILE DUCTS: Dilation of the extrahepatic there is a somewhat to 9 mm at the common bi le duct. No stones are identified. PANCREAS: Unremarkable. SPLEEN: Unremarkable. ADRENAL GLANDS: Unremarkable. KIDNEYS AND URETERS: No evidence of hydronephrosis or renal calculus. The ureters are unremarkable. PELVIS BLADDER: Unremarkable REPRODUCTIVE: Unremarkable. ABDOMEN & PELVIS STOMACH AND BOWEL: No evidence of bowel obstruction. Gastric lap band present. Gastric lap band appea rs in appropriate position. There is dilation of the esophagus with layering ingested contents/oral c ontrast. Appendix is within normal limits. PERITONEUM/RETROPERITONEUM: No evidence of pneumoperitoneum or free fluid. VASCULATURE: No evidence of aortic aneurysm. MUSCULOSKELETAL: No acute osseous abnormalities, fixation hardware at L4-L5 and S1. Hardware appears intact. Laminectomy changes at L5 LYMPH NODES: No gross evidence for lymphadenopathy. SOFT TISSUE/ABDOMINAL WALL: Mild Fat stranding changes in the left low anterior pelvis subcutaneous t issues IMPRESSION: 1. No definitive right-sided abdominal process to explain the patient's pain. No obstructive uropath y or renal calculus. No evidence 2. Gastric lap band with some degree of obstruction given layering ingested contents and oral contra st within the distal esophagus. 3. Dilation of the extrahepatic there is a somewhat to 9 mm at the common bile duct. Consider evalua tion with MRCP if this concern for pathology. No choledocholithiasis identified on CT imaging. 4. Mild fat stranding in the left low anterior mons pubis. Correlate for cellulitis.
[2023-07-08] MEDS: HYDROmorphone 1 MG/ML 1 ML SYRINGE IVP PRN (19:55)
[2023-07-09] MEDS: KETOROLAC 15 MG/ML 1 ML VIAL IVP PRN (03:08)
[2023-07-09] MEDS ORDERED: HYDROcodone/APAP 10-325MG 1 EACH TAB PO PRN (06:04)
[2023-07-09] MEDS ORDERED: carisoprodoL 350 MG TAB PO PRN (06:04)
[2023-07-09] MEDS: PANTOPRAZOLE 40 MG/10 ML VIAL IV SCH (09:22)
--- NOTE | 2023-07-09 10:25 | NM ---
EXAMINATION TYPE: NM hepatobiliary w CCK DATE OF EXAM: 07/09/2023 10:00 AM COMPARISON: CT abdomen pelvis most recent from 07/07/2013. CLINICAL INDICATION:Female, 58 years old with history of Abdominal pain, gallbladder distention; TECHNIQUE: The patient was given 4.25 mCi of Technetium 99m-Mebrofenin as a radiotracer and multiple scintigraphic images were obtained of the abdomen. Gallbladder function was also assessed after the administration of 1.6 mcg of Kinevac and additional scintigraphic images were obtained of the abdomen . A region of interest was drawn over the gallbladder and a timing activity curve was generated. The gallbladder ejection fraction was calculated. Kinevac: 1.6 mcg FINDINGS: Normal uptake of radiotracer was identified within the liver with excretion into the hepatic and comm on biliary ducts . There was normal progressive washout of the liver over the course of the study. Ra diotracer uptake within the gallbladder at 6 minutes well as small bowel activity was identified at 3 8 minutes . Maximum calculated gallbladder ejection fraction is: 92% at 29minutes (Normal gallbladder ejection fraction is > 35%) IMPRESSION: 1. Normal hepatobiliary scan. 2. Normal ejection fraction.
--- NOTE | 2023-07-09 11:43 | P.GSHP ---
History of Present Illness H&P Date: 07/09/23 CHIEF COMPLAINT: Abdominal pain HISTORY OF PRESENT ILLNESS: This is a 58-year-old female who presented with abdominal pain across upper abdomen x 2 weeks. She initially will was following with Dr. Page outpatient and scheduled for HIDA scan. However patient continued to have worsening abdominal pain and did have altered mental status. Came into the ER for further evaluation. Patient also been dealing with constipation and had been evaluated in the emergency room 2 days ago and given GoLytely. Patient reports she is passing small amount of liquidy stool. But not any significant bowel movement. She is having flatus. She reports nausea and vomiting. Symptoms are worse after eating. Appetite has been decreased. She does have a prior surgical history of lap band surgery, panniculectomy and . Patient had CT scan abdomen pelvis and HIDA scan completed. Patient admitted to surgical service regarding abdominal pain. 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 REVIEW OF SYSTEMS: CONSTITUTIONAL: Denies fever or chills. HEENT: Denies blurred vision, vision changes, or eye pain. Denies hemoptysis CARDIOVASCULAR: Denies chest pain or pressure. RESPIRATORY: No shortness of breath. GASTROINTESTINAL: See HPI for pertinent findings HEMATOLOGIC: Denies bleeding disorders. GENITOURINARY: Denies any blood in urine or increased urinary frequency. SKIN: Denies pruitis. Denies rash. PHYSICAL EXAM: VITAL SIGNS: Reviewed GENERAL: Well-developed in no acute distress. HEENT: No sclera icterus. Extraocular movements grossly intact. Moist buccal mucosa. Head is atraumatic, normocephalic. No nasal drainage. ABDOMEN: Soft. Nondistended. Tenderness with palpation across the upper abdomen in the epigastric and right upper quadrant area. Lap-Band port palpable nontender NEUROLOGIC: Alert and oriented. Cranial nerves II through XII grossly intact. LABORATORY DATA: WBC 6.5 Hgb 13.1 platelets 258 INR 0.9 Sodium is 138 potassium is 4.7 creatinine 0.58 LFTs normal Lipase 26 IMAGING: CT scan abdomen and pelvis reports no definitive right-sided abdominal process to explain patient's pain. No obstructive uropathy or renal calculus. Gastric lap band with some degree of obstruction noted. Mild fat stranding in the left lower anterior mons pubis. Correlate for cellulitis. HIDA reports EF 92% ASSESSMENT: 1. Abdominal pain with nausea and vomiting 2. Hyperkinetic gallbladder 3. Gastric lap band with some degree of obstruction noted on CT. PLAN: -Patient scheduled for laparoscopic cholecystectomy tomorrow with Dr. Page -N.p.o. after midnight -Continue IV fluids -Continue antiemetics -Continue pain medication -CT scan results reviewed with Dr. Page. He recommended to continue to observe. Physician Ham Curer note has been reviewed by physician. Signing provider agrees with the documented findings, assessment, and plan of care. 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 PANNI 08/08/2020. panniculectomy 08-08-20 Past Anesthesia/Blood Transfusion Reactions: No Reported Reaction Past Psychological History: No Psychological Hx Reported Smoking Status: Never smoker Past Alcohol Use History: None Reported Past Drug Use History: None Reported - Past Family History Mother Family Medical History: CVA/TIA Father Family Medical History: Cancer, CVA/TIA Additional Family Medical History / Comment(s): PROSTATE CANCER Sister(s) Additional Family Medical History / Comment(s): BRAIN ANEURYSM Medications and Allergies Home Medications Medication Instructions Recorded Confirmed Type HYDROcodone/APAP 10-325MG [[place] 1 tab PO TID PRN 07/08/23 07/08/23 History 10-325] carisoprodoL [Soma] 350 mg PO BID PRN 07/08/23 07/08/23 History Allergies Allergy/AdvReac Type Severity Reaction Status Date / Time No Known Allergies Allergy Verified 07/08/23 17:21 Surgical - Exam Vital Signs Temp Pulse Resp BP Pulse Ox 98.2 F 81 16 120/78 97 07/08/23 11:54 07/08/23 11:54 07/08/23 11:54 07/08/23 11:54 07/08/23 11:54 Results - Labs 07/08/23 13:17 07/08/23 13:17 Abnormal Lab Results - Last 24 Hours (Table) 07/08/23 07/08/23 07/08/23 Range/Units 13:17 13:17 13:25 PT 9.9 L (10.0-12.5) sec BUN 6 L (7-17) mg/dL Glucose 108 H (74-99) mg/dL Urine Appearance Cloudy H (Clear) Urine Blood Small H (Negative) Ur Leukocyte Esterase Large H (Negative) Urine RBC 11 H (0-5) /hpf Urine WBC 31 H (0-5) /hpf Ur Squamous Epith Cells 23 H (0-4) /hpf Urine Bacteria Occasional H (None) /hpf Urine Mucus Rare H (None) /hpf Diabetes panel 07/08/23 Range/Units 13:17 Sodium 138 (137-145) mmol/L Potassium 4.7 (3.5-5.1) mmol/L Chloride 104 (98-107) mmol/L Carbon Dioxide 26 (22-30) mmol/L BUN 6 L (7-17) mg/dL Creatinine 0.58 (0.52-1.04) mg/dL Glucose 108 H (74-99) mg/dL Calcium 9.2 (8.4-10.2) mg/dL AST 17 (14-36) U/L ALT 12 (4-34) U/L Alkaline Phosphatase 93 (38-126) U/L Total Protein 7.0 (6.3-8.2) g/dL Albumin 4.0 (3.5-5.0) g/dL Calcium panel 07/08/23 Range/Units 13:17 Calcium 9.2 (8.4-10.2) mg/dL Albumin 4.0 (3.5-5.0) g/dL Pituitary panel 07/08/23 Range/Units 13:17 Sodium 138 (137-145) mmol/L Potassium 4.7 (3.5-5.1) mmol/L Chloride 104 (98-107) mmol/L Carbon Dioxide 26 (22-30) mmol/L BUN 6 L (7-17) mg/dL Creatinine 0.58 (0.52-1.04) mg/dL Glucose 108 H (74-99) mg/dL Calcium 9.2 (8.4-10.2) mg/dL Adrenal panel 07/08/23 Range/Units 13:17 Sodium 138 (137-145) mmol/L Potassium 4.7 (3.5-5.1) mmol/L Chloride 104 (98-107) mmol/L Carbon Dioxide 26 (22-30) mmol/L BUN 6 L (7-17) mg/dL Creatinine 0.58 (0.52-1.04) mg/dL Glucose 108 H (74-99) mg/dL Calcium 9.2 (8.4-10.2) mg/dL Total Bilirubin 0.3 (0.2-1.3) mg/dL AST 17 (14-36) U/L ALT 12 (4-34) U/L Alkaline Phosphatase 93 (38-126) U/L Total Protein 7.0 (6.3-8.2) g/dL Albumin 4.0 (3.5-5.0) g/dL
--- NOTE | 2023-07-09 12:48 | P.CONS ---
History of Present Illness - Reason for Consult Consult date: 07/09/23 Medical management Requesting physician: Jono Page - Chief Complaint Abdominal pain - History of Present Illness This is a 58-year-old patient, follows with Dr. Arron Blackburn. Chronic stable medical conditions include osteoarthritis, paralyzed vocal cord after cervical surgery, kidney stones, renal stent that was placed and removed, lap band in 2011 Patient now presents with abdominal pain. Somewhat diffuse sometimes upper abdomen. Nausea vomiting. Not able to keep any food down. No bowel movement for 2 weeks. Denies any fever and chills. Denies any cardiac history. Review of systems: GEN.: Tired EYES: None HEENT: None NECK: None RESPIRATORY: None CARDIOVASCULAR: None GASTROINTESTINAL: [As above GENITOURINARY: None MUSCULOSKELETAL: None LYMPHATICS: None HEMATOLOGICAL: None PSYCHIATRY: None NEUROLOGICAL: None Social history: Non-smoker no alcohol. Lives alone. Physical examination: VITAL SIGNS: 98.1, 65, 17, 167 x 80, 99% room air GENERAL: BMI 26.6, reclining bed awake not in distress. EYES: Pupils equal. Conjunctiva zack l. HEENT: External appearance of nose and ears normal, oral cavity grossly normal. NECK: JVD not raised; masses not palpable. HEART: First and second heart sounds are normal; no edema. LUNGS: Respiratory rate normal; clear to auscultation. ABDOMEN: Soft, tender including right upper quadrant liver spleen not palpable, no masses palpable. PSYCH: Alert and oriented x3; mood and affect zack l. MUSCULOSKELETAL:No Clubbing/cyanosis;muscles-grossly intact NEUROLOGICAL: Cranial nerves grossly intact; no facial asymmetry, power and sensation grossly intact. LYMPHATICS: No lymph nodes palpable in the axilla and neck INVESTIGATIONS, reviewed in the clinical context: July 08, 2023: White count 6.5 hemoglobin 13.1 platelets 258 sodium 138 potassium 4.7 BUN 6 creatinine 0.58 EKG tracing personally reviewed by me-normal sinus rhythm. CT abdomen pelvis: Gastric lap band. Some degree of obstruction. Dilatation extrahepatic somewhat 9 mm at the common bile duct. HIDA scan: Normal ejection fraction. Abdominal x-ray film personally reviewed by me: Some minimal nonobstructive bowel gas pattern. Assessment plan: -Patient presents with 2 weeks abdominal pain. Nausea vomiting not able to keep anything down. No bowel movement for [address] scan of the abdomen shows dilatation of esophagus with layering ingested contents. And oral contrast within the distal esophagus.: Suspect partial obstruction from Lap-Band. Will need EGD -Also some right upper quadrant pain. Some dilatation of the bile duct on the CT scan. No gallstones seen. HIDA scan normal. Questionable diagnosis of cholecystitis. No white count. -Gastric lap band in 2013 -Chronic low back pain causing disability Soma 350 mg twice daily as needed. [place] 10 3 times daily as needed. -Asymptomatic bacteriuria. Patient has no urinary symptoms. Discussed with patient. NPO. IV fluids. 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 PANNI 08/08/2020. panniculectomy 08-08-20 Past Anesthesia/Blood Transfusion Reactions: No Reported Reaction Past Psychological History: No Psychological Hx Reported Smoking Status: Never smoker Past Alcohol Use History: None Reported Past Drug Use History: None Reported - Past Family History Mother Family Medical History: CVA/TIA Father Family Medical History: Cancer, CVA/TIA Additional Family Medical History / Comment(s): PROSTATE CANCER Sister(s) Additional Family Medical History / Comment(s): BRAIN ANEURYSM Medications and Allergies Home Medications Medication Instructions Recorded Confirmed Type HYDROcodone/APAP 10-325MG [[place] 1 tab PO TID PRN 07/08/23 07/08/23 History 10-325] carisoprodoL [Soma] 350 mg PO BID PRN 07/08/23 07/08/23 History Allergies Allergy/AdvReac Type Severity Reaction Status Date / Time No Known Allergies Allergy Verified 07/08/23 17:21 Physical Exam Vitals: Vital Signs Temp Pulse Resp BP Pulse Ox 07/09/23 12:10 98.3 F 73 20 159/80 100 07/09/23 11:05 66 17 120/72 95 07/09/23 10:12 98.1 F 65 17 167/80 99 07/09/23 09:20 98.0 F 63 17 158/79 98 07/09/23 06:45 55 L 17 152/76 96 07/09/23 04:00 97.8 F 57 L 17 137/72 95 07/09/23 01:10 68 18 130/76 95 07/08/23 20:01 70 18 149/88 96 07/08/23 16:09 64 18 139/76 95 07/08/23 12:48 73 18 135/83 98 Results CBC & Chem 7: 07/08/23 13:17 07/08/23 13:17 Labs: Abnormal Lab Results - Last 24 Hours (Table) 07/08/23 07/08/23 07/08/23 Range/Units 13:17 13:17 13:25 PT 9.9 L (10.0-12.5) sec BUN 6 L (7-17) mg/dL Glucose 108 H (74-99) mg/dL Urine Appearance Cloudy H (Clear) Urine Blood Small H (Negative) Ur Leukocyte Esterase Large H (Negative) Urine RBC 11 H (0-5) /hpf Urine WBC 31 H (0-5) /hpf Ur Squamous Epith Cells 23 H (0-4) /hpf Urine Bacteria Occasional H (None) /hpf Urine Mucus Rare H (None) /hpf
[2023-07-09] MEDS: LACTATED RINGERS 1,000 ML IV SCH (13:43)
[2023-07-10 08:25] LABS: Basophils % (A) 1 %; Eosinophils # (A) 0.1 k/uL (0-0.7); Eosinophils % (A) 2 %; HGB 11.8 gm/dL (11.4-16.0); Lymphocytes # (A) 1.1 k/uL (1.0-4.8); Lymphocytes % (A) 24 %; MCH 30.8 pg (25.0-35.0); MCHC 31.9 g/dL (31.0-37.0); MCV 96.4 fL (80.0-100.0); Mean Platelet Volume 7.8; Monocytes # (A) 0.3 k/uL (0-1.0); Monocytes % (A) 6 %; Neutrophils # (A) 2.9 k/uL (1.3-7.7); Neutrophils % (A) 65 %; Platelet Count 209 k/uL (150-450); RBC 3.84 m/uL (3.80-5.40); RDW 13.7 % (11.5-15.5); WBC 4.5 k/uL (3.8-10.6)
[2023-07-10 08:38] LABS: African American GFR (CKD) >90 (>60 ml/min/1.73 sqM); Anion Gap 5 mmol/L; Blood Urea Nitrogen 4 mg/dL (7-17); Calcium 9.1 mg/dL (8.4-10.2); Carbon Dioxide 28 mmol/L (22-30); Chloride 104 mmol/L (98-107); Glucose 101 mg/dL (74-99); Non-African American GFR(CKD) >90 (>60 ml/min/1.73 sqM); Potassium 4.4 mmol/L (3.5-5.1); Sodium 137 mmol/L (137-145)
[2023-07-10] MEDS: IV FLUID CONTINUATION 1,000 ML IV ONE (08:49)
[2023-07-10 08:58] VITALS: RESP 16
[2023-07-10] MEDS: ONDANSETRON 4 MG/2 ML VIAL IVP PRN (09:01)
[2023-07-10] MEDS: HEPARIN SODIUM,PORCINE 5,000 UNIT/ML 1 ML VIAL SQ ONE (09:23)
[2023-07-10] MEDS: LIDOCAINE 1%-EPI 1:100,000 20 ML VIAL SQ ONE ×2 (09:38→09:57)
[2023-07-10] MEDS ORDERED: LIDOCAINE 1% INJ 10MG/ML (20 ML MDV) ONE (09:39)
[2023-07-10] MEDS ORDERED: GLYCOPYRROLATE 0.2 MG/ML 2 ML VIAL ONE (09:39)
[2023-07-10] MEDS ORDERED: ROCURONIUM 10 MG/ML (5 ML VIAL) IV ONE (09:39)
[2023-07-10] MEDS ORDERED: SUCCINYLCHOLINE CHLORIDE 200 MG/10 ML VIAL IV ONE (09:39)
[2023-07-10] MEDS ORDERED: KETOROLAC 15 MG/ML 1 ML VIAL ONE (09:39)
[2023-07-10] MEDS ORDERED: HYDROmorphone (PF) 1 MG/ML ONE (09:39)
[2023-07-10] MEDS ORDERED: KETAMINE HCL IN 0.9 % NACL 50 MG/5 ML SYRINGE ONE (09:39)
[2023-07-10] MEDS ORDERED: MIDAZOLAM 2 MG/2 ML VIAL ONE (09:39)
[2023-07-10] MEDS ORDERED: PROPOFOL 10 MG/ML 20 ML VIAL IV ONE (09:39)
[2023-07-10] MEDS ORDERED: fentaNYL (PF) 50 MCG/ML 2 ML AMP ONE (09:39)
[2023-07-10] MEDS ORDERED: NEOSTIGMINE 1 MG/ML 10 ML VIAL ONE (09:39)
[2023-07-10] MEDS: HYDROmorphone 0.5 MG/0.5 ML SYRINGE IVP ONE (10:20)
--- NOTE | 2023-07-10 10:26 | P.OP ---
Date of Procedure: 07/10/23 Preoperative Diagnosis: cholecystitis Postoperative Diagnosis: cholecystitis Procedure(s) Performed: laparoscopic cholecystectomy Adjustment of gastric band Anesthesia: RAJINDER Surgeon: Jono Page Pathology: other (gallbladder) Condition: stable Disposition: PACU Description of Procedure: The patient was placed on the operating table. The patient received a general endotracheal tube anesthesia. The patients abdomen was prepped and draped in the usual sterile fashion. Through an infraumbilical stab incision, the fascia of the anterior abdominal wall was grasped with a pair of Kochers and then the Veress needle was placed in the peritoneal cavity. Position of the Veress needle was confirmed with positive drop test. The abdomen was then insufflated. After adequate insufflation, the 10 mm trocar was placed in the peritoneal cavity. Following this the laparoscope was placed in the peritoneal cavity. The patient was placed in the head-up, right side up position and then a 5 mm trocar was placed in the right lateral and right subcostal position under direct visualization. A 8 mm trocar was placed in the epigastric position. The gallbladder was grasped in the fundus and infundibulum. Traction on the gallbladder was placed in the lateral and the cephalad positions. The triangle of Calot was visualized.. The cystic duct was bluntly dissected until the union of the cystic duct and common bile duct was seen. A critical view of safety was achieved. The cystic duct was then divided and sealed with the Harmonic scissors. A PDS Endoloop was then placed throughout the cystic duct stump. The cystic artery divided and sealed with the Harmonic scissors. The gallbladder was then removed from the liver bed using Harmonic scissors. The gallbladder was then extracted through the epigastric port site. Operative field was checked for any bleeding spots and Harmonic scissors was used to coagulate the liver bed. The abdomen was irrigated. The trocars were removed. The skin was closed using interrupted 3-0 Vicryl suture. Dermabond dressing were applied. The patient LAP-BAND was adjusted. 10 mL removed from her band. The patient tolerated the procedure well.
[2023-07-10] MEDS: DEXAMETHASONE SOD PHOSPHATE 4 MG/ML 1 ML VIAL IV ONE ×2 (11:28→11:29)
[2023-07-10] MEDS: LACTATED RINGERS 1,000 ML IV SCH (11:29)
[2023-07-10 15:23] VITALS: BP 158/82; PULSE 50; TEMP 97.9
--- NOTE | 2023-07-10 15:53 | P.DS ---
Providers Date of admission: 07/08/23 16:19 Expected date of discharge: 07/10/23 Attending physician: Jono Page Consults: 07/08/23 16:59 Consult Physician Urgent Consulting Provider: Tunde Sy Consult Reason/Comments: Medical management Do you want consulting provider notified?: Yes Primary care physician: Arron Alexey [facility] Course: Discharge diagnosis 1. Cholecystitis status post laparoscopic cholecystectomy 2. Hyperkinetic gallbladder 3. Gastric lap band with some degree obstruction noted on CT scan. Patient had lap band adjusted with 10 mL removed in OR Hospital course This is a 58-year-old female who presented to the hospital with abdominal pain across upper abdomen x 2 weeks. HIDA scan had reported an EF of 92%. CT scan abdomen pelvis reported evidence of gastric lap band with some degree of obstruction noted. Patient is status post laparoscopic cholecystectomy. Also she had adjustment of the Lap-Band with 10 mL fluid removed in the OR. Patient is tolerating diet. Pain is controlled. She is afebrile. She is stable for discharge. She is up and ambulating. Please refer to chart for any further details. Physician Pipe Coverer Helper note has been reviewed by physician. Signing provider agrees with the documented findings, assessment, and plan of care. Patient Condition at Discharge: Stable Plan - Discharge Summary New Discharge Prescriptions: New Acetaminophen Tab [Tylenol] 650 mg PO Q6H #30 tab Docusate [Colace] 100 mg PO BID #20 capsule Ibuprofen [Motrin] 600 mg PO Q6HR PRN #40 tab PRN Reason: Pain No Action carisoprodoL [Soma] 350 mg PO BID PRN PRN Reason: Muscle Spasm HYDROcodone/APAP 10-325MG [[place] 10-325] 1 tab PO TID PRN PRN Reason: Pain Discharge Medication List HYDROcodone/APAP 10-325MG [[place] 10-325] 1 tab PO TID PRN 07/08/23 [History] carisoprodoL [Soma] 350 mg PO BID PRN 07/08/23 [History] Acetaminophen Tab [Tylenol] 650 mg PO Q6H #30 tab 07/10/23 [Rx] Docusate [Colace] 100 mg PO BID #20 capsule 07/10/23 [Rx] Ibuprofen [Motrin] 600 mg PO Q6HR PRN #40 tab 07/10/23 [Rx] Follow up Appointment(s)/Referral(s): Arron Blackburn MD [Primary Care Provider] - 1-2 days Jono Page MD [STAFF PHYSICIAN] - 07/16/23 3:10 pm Patient Instructions/Handouts: *Surgery [facility] - Laparoscopic Cholecystectomy Discharge Instructions, *Surgery [facility] - (Anesthesia) Discharge Instructions Outpatient Surgery
--- NOTE | 2023-07-10 16:45 | P.PN ---
Progress Note - Text Progress Note Date: 07/10/23 - Chief Complaint Abdominal pain - History of Present Illness This is a 58-year-old patient, follows with Dr. Arron Blackburn. Chronic stable medical conditions include osteoarthritis, paralyzed vocal cord after cervical surgery, kidney stones, renal stent that was placed and removed, lap band in 2011 Patient now presents with abdominal pain. Somewhat diffuse sometimes upper abdomen. Nausea vomiting. Not able to keep any food down. No bowel movement for 2 weeks. Denies any fever and chills. Denies any cardiac history. July 09: Patient underwent cholecystectomy by Dr Page today. Patient also follows up with the gastroenterology for her Barker's esophagus down in [facility]. Told the patient to follow-up follow-up with Dr Page regarding her Lap-Band with some evidence of obstruction on CT scan. Medications reviewed Social history: Non-smoker no alcohol. Lives alone. Physical examination: VITAL SIGNS: 97.9, 50, 16, 145/74, 94% room air GENERAL: In bed, comfortable EYES: Pupils equal. Conjunctiva zack l. HEENT: External appearance of nose and ears normal, oral cavity grossly normal. NECK: JVD not raised; masses not palpable. HEART: First and second heart sounds are normal; no edema. LUNGS: Respiratory rate normal; clear to auscultation. ABDOMEN: Soft, mild upper abdominal tenderness, liver spleen not palpable, no masses palpable. PSYCH: Alert and oriented x3; mood and affect zack l. MUSCULOSKELETAL:No Clubbing/cyanosis;muscles-grossly intact INVESTIGATIONS, reviewed in the clinical context: July 08, 2023: White count 6.5 hemoglobin 13.1 platelets 258 sodium 138 potassium 4.7 BUN 6 creatinine 0.58 EKG tracing personally reviewed by me-normal sinus rhythm. CT abdomen pelvis: Gastric lap band. Some degree of obstruction. Dilatation extrahepatic somewhat 9 mm at the common bile duct. HIDA scan: Normal ejection fraction. Abdominal x-ray film personally reviewed by me: Some minimal nonobstructive bowel gas pattern. Assessment plan: -Patient presents with 2 weeks abdominal pain. Nausea vomiting not able to keep anything down. No bowel movement for [address] scan of the abdomen shows dilatation of esophagus with layering ingested contents. And oral contrast wi thin the distal esophagus.: Suspect partial obstruction from Lap-Band. Patient to follow-up with Dr Page for EGD. -Status postcholecystectomy for possible chronic cholecystitis -Gastric lap band in 2013 -Chronic low back pain causing disability Soma 350 mg twice daily as needed. [place] 10 3 times daily as needed. -Asymptomatic bacteriuria. Patient has no urinary symptoms. Discussed with patient. 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 PANNI 08/08/2020. panniculectomy 08-08-20 Past Anesthesia/Blood Transfusion Reactions: No Reported Reaction Past Psychological History: No Psychological Hx Reported Smoking Status: Never smoker Past Alcohol Use History: None Reported Past Drug Use History: None Reported
[2023-07-11] MEDS ORDERED: fentaNYL (PF) 50 MCG/ML 2 ML AMP IV PRN (07:00)
== END 2023-07-10 16:19 | disposition home or self-care (01) ==
LOC: EC 11:22 → 6NMEDSUR 16:19
PROVIDERS: ADMIT Surgery; ATTEND Surgery
DX: K81.9 Cholecystitis, unspecified (principal); K82.8 Other specified diseases of gallbladder; T85.898A Other specified complication of other internal prosthetic devices, implants and grafts, initial encounter; Z98.84 Bariatric surgery status; Z96.651 Presence of right artificial knee joint; Z87.442 Personal history of urinary calculi
CPT/HCPCS: 47562; 43999; 96376; 96361; 96365; 96366 ×2; 96367; 96372; 96374; 99285; 36415; 93005; 88304; 80053; 80048; 82150; 83605; 83690; 83735; 84484; 85025 ×2; 85610; 85730; 81001; 87086; 74018; 74177; 78227; G0378 ×3; A9537; J1644; J0690; J2405; J2805; J1170 ×4; J1885; C9113 ×2; Q9967

== ENCOUNTER → 2023-07-08 | Outpatient (CLI) | payer MEDICARE ==
[2023-07-08 11:56] VITALS: BP 124/88; PULSE 92; RESP 14; TEMP 97.7
--- NOTE | 2023-07-08 17:27 | P.HPBAR ---
Bariatric H&P - History & Physicial H&P Date: 07/08/23 History & Physicial: Visit/CC: dr. robles visit regarding abdomen pain. Patient initial contact: Initial weight: 104.922 kg Initial weight in pounds: 231.31 Height: 5 ft 6 in Initial BMI: Last weight: Current weight: 79.469 kg Current weight in pounds: Current BMI: [place] body weight (based on NIH guidelines): Excess body weight loss: The patient is a 58 year-old F who presents for Bariatric Assessment.this is a 50-year-old female who's complaints of some epigastric pain. Patient was seen emergency room 2 days ago. Patient was discharged home and passed follow-up the peritoneal side up. Patient has some complaints of epigastric pain which raised right upper quadrant. 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 PANNI 08/08/2020. panniculectomy 08-08-20 Past Anesthesia/Blood Transfusion Reactions: No Reported Reaction Past Psychological History: No Psychological Hx Reported Smoking Status: Never smoker Past Alcohol Use History: None Reported Past Drug Use History: None Reported - Past Family History Mother Family Medical History: CVA/TIA Father Family Medical History: Cancer, CVA/TIA Additional Family Medical History / Comment(s): PROSTATE CANCER Sister(s) Additional Family Medical History / Comment(s): BRAIN ANEURYSM Surgical - Exam Vital Signs Temp Pulse Resp BP 97.7 F 92 14 124/88 07/08/23 11:37 07/08/23 11:37 07/08/23 11:37 07/08/23 11:37 - General well developed, well nourished, no distress - Eyes PERRL - ENT normal pinna - Neck no masses - Respiratory normal expansion - Cardiovascular Rhythm: regular - Abdomen mild epigastric tenderness Abdomen: soft Bariatric Assessment & Plan Plan: the patient was scheduled for HIDA scan. Patient developed some signs of confusion. She was sent to the emergency room for evaluation. Bariatric Checklist Checklist: Plan: Checklist: EGD: 1. Hiatal hernia: 2. H. Pylori: HgbA1c: Vitamin D: Smoking: Never smoker Primary care physician referral: Dr. Lee; No set PCP Psychiatry clearance: Cardiology clearance: Sleep study: Diet journal: VTE risk score: VTE risk level: Rehab needs at discharge:
== END ==
LOC: BARWHC3 10:34
PROVIDERS: ATTEND Surgery
DX: R10.11 Right upper quadrant pain (principal); R10.13 Epigastric pain; R41.0 Disorientation, unspecified; Z98.84 Bariatric surgery status
CPT/HCPCS: 99211

== ENCOUNTER → 2023-09-09 | Outpatient (CLI) | payer MEDICARE ==
[2023-09-09 10:01] VITALS: BP 163/75; PULSE 73; RESP 16; TEMP 97.9; BMI 30.4
--- NOTE | 2023-09-12 11:39 | P.HPBAR ---
Bariatric H&P - History & Physicial H&P Date: 09/09/23 History & Physicial: Visit/CC: Band Adj Patient initial contact: Initial weight: 104.922 kg Initial weight in pounds: 231.31 Height: 5 ft 6 in Initial BMI: 37.3 Last weight: Current weight: 85.729 kg Current weight in pounds: 189.00 Current BMI: 30.4 [place] body weight (based on NIH guidelines): 58.967 kg Excess body weight loss: 41.7% The patient is a 58 year-old F who presents for Bariatric Assessment. Patient currently feels hungry. She is requesting a fill of her band. 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 PANNI 08/08/2020. panniculectomy 08-08-20 Past Anesthesia/Blood Transfusion Reactions: No Reported Reaction Smoking Status: Never smoker - Past Family History Mother Family Medical History: CVA/TIA Father Family Medical History: Cancer, CVA/TIA Additional Family Medical History / Comment(s): PROSTATE CANCER Sister(s) Additional Family Medical History / Comment(s): BRAIN ANEURYSM Surgical - Exam Vital Signs Temp Pulse Resp BP 97.9 F 73 16 163/75 09/09/23 09:58 09/09/23 09:58 09/09/23 09:58 09/09/23 09:58 - General Abdomen soft nontender well developed, well nourished Bariatric Assessment & Plan Plan: Patient's Lap-Band was adjusted. She had 1 cc added to the band. She will follow-up in 4 weeks. Bariatric Checklist Checklist: Plan: Checklist: EGD: 1. Hiatal hernia: 2. H. Pylori: HgbA1c: Vitamin D: Smoking: Never smoker Primary care physician referral: Dr. Lee; No set PCP Psychiatry clearance: Cardiology clearance: Sleep study: Diet journal: VTE risk score: VTE risk level: Rehab needs at discharge:
== END ==
LOC: BARWHC3 09:18
PROVIDERS: ATTEND Surgery
DX: Z46.51 Encounter for fitting and adjustment of gastric lap band (principal); Z98.84 Bariatric surgery status
CPT/HCPCS: 43999

== ENCOUNTER → 2023-11-04 | Outpatient (CLI) | payer MEDICARE ==
[2023-11-04 10:35] VITALS: BP 157/78; PULSE 81; RESP 16; TEMP 98.2; BMI 30.4
--- NOTE | 2023-11-04 13:29 | P.HPBAR ---
Bariatric H&P - History & Physicial H&P Date: 11/04/23 History & Physicial: Visit/CC: f/u lapband n Patient initial contact: Initial weight: 104.922 kg Initial weight in pounds: 231.31 Height: 5 ft 7 in Initial BMI: 36.2 Last weight: Current weight: 87.997 kg Current weight in pounds: 194.00 Current BMI: 30.4 [place] body weight (based on NIH guidelines): 61.235 kg Excess body weight loss: 38.7% The patient is a 58 year-old F who presents for Bariatric Assessment. Patient presents today for bariatric follow-up. She is requesting a fill of her band. She currently feels hungry. 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 PANNI 08/08/2020. panniculectomy 08-08-20 Past Anesthesia/Blood Transfusion Reactions: No Reported Reaction Past Psychological History: No Psychological Hx Reported Smoking Status: Never smoker Past Alcohol Use History: None Reported Past Drug Use History: None Reported - Past Family History Mother Family Medical History: CVA/TIA Father Family Medical History: Cancer, CVA/TIA Additional Family Medical History / Comment(s): PROSTATE CANCER Sister(s) Additional Family Medical History / Comment(s): BRAIN ANEURYSM Surgical - Exam Vital Signs Temp Pulse Resp BP 98.2 F 81 16 157/78 11/04/23 10:27 11/04/23 10:27 11/04/23 10:27 11/04/23 10:27 - General well developed, well nourished, no distress - Eyes PERRL - ENT normal pinna - Neck no masses - Respiratory normal expansion - Cardiovascular Rhythm: regular - Abdomen Abdomen: soft Bariatric Assessment & Plan Plan: Patient's Lap-Band adjusted. She had 1 cc of. She will follow-up in 4 weeks. Bariatric Checklist Checklist: Plan: Checklist: EGD: 1. Hiatal hernia: 2. H. Pylori: HgbA1c: Vitamin D: Smoking: Never smoker Primary care physician referral: Dr. Lee; No set PCP Psychiatry clearance: Cardiology clearance: Sleep study: Diet journal: VTE risk score: VTE risk level: Rehab needs at discharge:
== END ==
LOC: BARWHC3 10:09
PROVIDERS: ATTEND Surgery
CPT/HCPCS: 43999

== ENCOUNTER 2023-12-30 13:12 | Emergency (ER) | payer MEDICARE ==
[2023-12-30 13:24] VITALS: TEMP 98.2
--- NOTE | 2023-12-30 13:35 | ED ---
Abdominal Pain HPI - General Source: patient, RN notes reviewed Mode of arrival: ambulatory Limitations: no limitations - History of Present Illness MD Complaint: abdominal pain <Eveline García - Last Filed: 12/30/23 13:46> - General Source: patient, RN notes reviewed <Ya Daigle - Last Filed: 12/30/23 22:56> - General Chief Complaint: Abdominal Pain Stated Complaint: ABD PAIN Time Seen by Provider: 12/30/23 13:30 - History of Present Illness Initial Comments: Quick Note: This is a 58 year old female who presents to the emergency department for abdominal pain. Reports upper abdominal pain beginning yesterday. She has nausea and vomiting of clear fluid. Denies any changes in bowel or bladder habits. She is concerned that it could be related to the lap band surgery she had many years ago. (Eveline García) 58-year-old female with history of pancreatitis presenting to the ER with epigastric pain x 2 days. States she has been dealing with this pain for a while however over the past 2 days it has gotten worse. Describes the pain as a constant, dull pain. Pain does not radiate. Patient is also experiencing associated nausea with dry heaving yesterday, however has not vomited today. Patient states that her stools are chronically loose, last bowel movement was loose and 2 days ago. Also noticed a splotchy red rash on her abdomen that began either today or yesterday. Rash does not itch and is not painful. Denies fevers, chills, chest pain, shortness of breath, urinary symptoms. She does have history of bariatric surgery several years ago, 2 C-sections, cholecy stectomy, and tubal ligation. Denies blood thinners. Denies alcohol use. (Ya Daigle) - Related Data Home Medications Medication Instructions Recorded Confirmed HYDROcodone/APAP 10-325MG [[place] 1 tab PO TID PRN 07/08/23 12/30/23 10-325] carisoprodoL [[place]] 350 mg PO BID PRN 07/08/23 12/30/23 Acetaminophen Tab [Tylenol] 650 mg PO Q6H PRN 11/04/23 12/30/23 Previous Rx's Medication Instructions Recorded Ibuprofen [Motrin] 600 mg PO Q6HR PRN #40 tab 07/10/23 Allergies Allergy/AdvReac Type Severity Reaction Status Date / Time No Known Allergies Allergy Verified 12/30/23 13:24 Review of Systems ROS Other: All systems not noted in ROS Statement are negative. <Eveline García - Last Filed: 12/30/23 13:46> ROS Other: All systems not noted in ROS Statement are negative. <PiloYa - Last Filed: 12/30/23 22:56> ROS Statement: Those systems with pertinent positive or pertinent negative responses have been documented in the HPI. 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 PANNI 08/08/2020. panniculectomy 08-08-20 Past Anesthesia/Blood Transfusion Reactions: No Reported Reaction Past Psychological History: No Psychological Hx Reported Smoking Status: Never smoker Past Alcohol Use History: None Reported Past Drug Use History: None Reported - Past Family History Mother Family Medical History: CVA/TIA Father Family Medical History: Cancer, CVA/TIA Additional Family Medical History / Comment(s): PROSTATE CANCER Sister(s) Additional Family Medical History / Comment(s): BRAIN ANEURYSM <Eveline García - Last Filed: 12/30/23 13:46> General Exam Limitations: no limitations <Eveline García - Last Filed: 12/30/23 13:46> General appearance: alert, in no apparent distress Head exam: Present: atraumatic, normocephalic, normal inspection Eye exam: Present: normal appearance, PERRL, EOMI. Absent: scleral icterus, conjunctival injection, periorbital swelling Respiratory exam: Present: normal lung sounds bilaterally. Absent: respiratory distress, wheezes, rales, rhonchi, stridor Cardiovascular Exam: Present: regular rate, normal rhythm, normal heart sounds. Absent: systolic murmur, diastolic murmur, rubs, gallop, clicks GI/Abdominal exam: Present: soft, normal bowel sounds, other (3-5 erythematous patches present on abdomen, no purulence or drainage). Absent: distended, ten derness, guarding, rebound, rigid Extremities exam: Present: normal inspection, full ROM, normal capillary refill. Absent: tenderness, pedal edema, joint swelling, calf tenderness Neurological exam: Present: alert, oriented X3 Psychiatric exam: Present: normal affect, normal mood Skin exam: Present: warm, dry, intact, normal color. Absent: rash <Ya Daigle - Last Filed: 12/30/23 22:56> - General Exam Comments Initial Comments: Visual Physical Exam Vital signs reviewed General: Well-appearing, nontoxic, no acute distress. Head: Normocephalic, atraumatic Eyes: PERRLA, EOMI ENT: Airway patent Chest: Nonlabored breathing Skin: No visual rash, normal skin tone Neuro: Alert and oriented 3 Musculoskeletal: No gross abnormalities (Eveline García) Course Vital Signs 12/30/23 12/30/23 13:22 18:17 Temperature 98.2 F Pulse Rate 75 77 Respiratory 20 18 Rate Blood Pressure 131/77 130/77 O2 Sat by Pulse 97 98 Oximetry Medical Decision Making <Eveline García - Last Filed: 12/30/23 13:46> - Lab Data Result diagrams: 12/30/23 13:36 12/30/23 13:36 - EKG Data -: EKG Interpreted by Me <Ya Daigle - Last Filed: 12/30/23 22:56> - Medical Decision Making I performed the QuickNote portion of this chart. Signed Eveline García PA-C. (Eveline García) Was pt. sent in by a medical professional or institution ([facility], PHLEBOTOMY TECHNOLOGIST, urgent care, hospital, or longterm...) When possible be specific @ -No Did you speak to anyone other than the patient for history (EMS, parent, family, police, friend...)? What history was obtained from this source @ -No Did you review nursing and triage notes (agree or disagree)? Why? @ -I reviewed and agree with nursing and triage notes Were old charts reviewed (outside hosp., previous admission, EMS record, old EKG, old radiological studies, urgent care reports/EKG's, longterm records)? Report findings @ -No old charts were reviewed Differential Diagnosis (chest pain, altered mental status, abdominal pain women, abdominal pain men, vaginal bleeding, weakness, fever, dyspnea, syncope, headache, dizziness, GI bleed, back pain, seizure, CVA, palpatations, mental health, musculoskeletal)? @ -Differential Abdominal Pain Women: Appendicitis, Cholecystitis, diverticulosis, ischemic bowel, pancreatitis, hepatitis, UTI, gastroenteritis, AAA, incarcerated hernia, bowel obstruction, constipation, inflammatory bowel, hepatitis, peptic ulcer disease, splenic infarction, perforated viscus, vulvitis, ovarian torsion, PID, kidney stone, placenta abruption, this is not meant to be an all-inclusive list EKG interpreted by me (3pts min.). @ -As above X-rays interpreted by me (1pt min.). @ -None done CT interpreted by me (1pt min.). @ -CT abdomen pelvis reveals loops of bowel situated in low pelvis demonstrating circumferential wall thickening, correlate for enteritis, gastric lap band in appropriate position U/S interpreted by me (1pt. min.). @ -None done What testing was considered but not performed or refused? (CT, X-rays, U/S, labs)? Why? @ -None What meds were considered but not given or refused? Why? @ -None Did you discuss the management of the patient with other professionals (prof oquendo i.e. , PA, PHLEBOTOMY TECHNOLOGIST, lab, RT, psych nurse, director of social media marketing, workday director, teacher, supervisory cbp officer, outsole caser)? Give summary @ -No Was smoking cessation discussed for >3mins.? @ -No Was critical care preformed (if so, how long)? @ -No Were there social determinants of health that impacted care today? How? (Homelessness, low income, unemployed, alcoholism, drug addiction, transportation, low edu. Level, literacy, decrease access to med. care, correction, rehab)? @ -No Was there de-escalation of care discussed even if they declined (Discuss DNR or withdrawal of care, Hospice)? DNR status @ -No What co-morbidities impacted this encounter? (DM, HTN, Smoking, COPD, CAD, Cancer, CVA, ARF, Chemo, Hep., AIDS, mental health diagnosis, sleep apnea, morbid obesity)? @ -None Was patient admitted / discharged? Hospital course, mention meds given and route, prescriptions, significant lab abnormalities, going to OR and other pertinent info. @ -Discharged. This is a 58-year-old female presenting with epigastric pain x 1 day. Vital signs are within acceptable limits. Abdomen is soft and nontender. EKG reveals normal sinus rhythm with no ST changes. Patient was provided with IV fluids, antiemetics, and analgesics. Lab including CBC, CMP, lipase, lactic acid unremarkable for mildly elevated liver enzymes, however otherwise unremarkable. White blood cell count stable at 6.3. Urinalysis reveals moderate blood, small leukocyte esterase however, appears to be contaminated sample. CT abdomen/pelvis reveals loops of bowel situated in low pelvis demonstrates circumferential wall thickening. Discussed results with patient. Discussed diagnosis of enteritis with patient as well as supportive care. Patient reports symptoms have improved and she feels stable for discharge. Discussed pain control and bowel rest. Advise close follow-up with PCP and Dr. Page. Return precautions discussed and patient is agreeable to plan. Case was discussed with my ED attending Dr. Taveras. Patient discharged in stable condition. Undiagnosed new problem with uncertain prognosis? @ -No Drug Therapy requiring intensive monitoring for toxicity (Heparin, Nitro, Insulin, Cardizem)? @ -No Were any procedures done? @ -No Diagnosis/symptom? @ -Acute gastroenteritis Acute, or Chronic, or Acute on Chronic? @ -Acute Uncomplicated (without systemic symptoms) or Complicated (systemic symptoms)? @ -Uncomplicated Side effects of treatment? @ -No Exacerbation, Progression, or Severe Exacerbation? @ -No Poses a threat to life or bodily function? How? (Chest pain, [place], [place], pneumonia, PE, COPD, DKA, ARF, appy, cholecystitis, CVA, Diverticulitis, Homicidal, Suicidal, threat to staff... and all critical care pts) @ -Not at this time (Ya Daigle) - Lab Data Lab Results 12/30/23 12/30/23 12/30/23 Range/Units 13:30 13:36 13:36 WBC 6.3 (3.8-10.6) k/uL RBC 4.35 (3.80-5.40) m/uL Hgb 13.3 (11.4-16.0) gm/dL Hct 40.6 (34.0-46.0) % MCV 93.4 (80.0-100.0) fL MCH 30.6 (25.0-35.0) pg MCHC 32.8 (31.0-37.0) g/dL RDW 14.0 (11.5-15.5) % Plt Count 315 (150-450) k/uL MPV 7.2 Neutrophils % 59 % Lymphocytes % 31 % Monocytes % 6 % Eosinophils % 2 % Basophils % 1 % Neutrophils # 3.8 (1.3-7.7) k/uL Lymphocytes # 1.9 (1.0-4.8) k/uL Monocytes # 0.4 (0-1.0) k/uL Eosinophils # 0.2 (0-0.7) k/uL Basophils # 0.0 (0-0.2) k/uL Sodium 137 (137-145) mmol/L Potassium 3.9 (3.5-5.1) mmol/L Chloride 103 (98-107) mmol/L Carbon Dioxide 26 (22-30) mmol/L Anion Gap 8 mmol/L BUN 11 (7-17) mg/dL Creatinine 0.79 (0.52-1.04) mg/dL Est GFR (CKD-EPI)AfAm >90 (>60 ml/min/1.73 sqM) Est GFR (CKD-EPI)NonAf 84 (>60 ml/min/1.73 sqM) Glucose 106 H (74-99) mg/dL Plasma Lactic Acid [place] (0.7-2.0) mmol/L Calcium 8.9 (8.4-10.2) mg/dL Total Bilirubin 0.3 (0.2-1.3) mg/dL AST 39 H (14-36) U/L ALT 42 H (4-34) U/L Alkaline Phosphatase 122 (38-126) U/L Total Protein 7.4 (6.3-8.2) g/dL Albumin 4.4 (3.5-5.0) g/dL Amylase 42 (30-110) U/L Lipase 61 (23-300) U/L Urine Color Light Yellow Urine Appearance Cloudy H (Clear) Urine pH 5.5 (5.0-8.0) Ur Specific [place] 1.013 (1.001-1.035) Urine Protein Negative (Negative) Urine Glucose (UA) Negative (Negative) Urine Ketones Negative (Negative) Urine Blood Moderate H (Negative) Urine Nitrite Negative (Negative) Urine Bilirubin Negative (Negative) Urine Urobilinogen <2.0 (<2.0) mg/dL Ur Leukocyte Esterase Small H (Negative) Urine RBC 3 (0-5) /hpf Urine WBC 5 (0-5) /hpf Ur Squamous Epith Cells 7 H (0-4) /hpf Urine Bacteria Rare H (None) /hpf Hyaline Casts 1 (0-2) /lpf Urine Mucus Rare H (None) /hpf 12/30/23 Range/Units 13:36 WBC (3.8-10.6) k/uL RBC (3.80-5.40) m/uL Hgb (11.4-16.0) gm/dL Hct (34.0-46.0) % MCV (80.0-100.0) fL MCH (25.0-35.0) pg MCHC (31.0-37.0) g/dL RDW (11.5-15.5) % Plt Count (150-450) k/uL MPV Neutrophils % % Lymphocytes % % Monocytes % % Eosinophils % % Basophils % % Neutrophils # (1.3-7.7) k/uL Lymphocytes # (1.0-4.8) k/uL Monocytes # (0-1.0) k/uL Eosinophils # (0-0.7) k/uL Basophils # (0-0.2) k/uL Sodium (137-145) mmol/L Potassium (3.5-5.1) mmol/L Chloride (98-107) mmol/L Carbon Dioxide (22-30) mmol/L Anion Gap mmol/L BUN (7-17) mg/dL Creatinine (0.52-1.04) mg/dL Est GFR (CKD-EPI)AfAm (>60 ml/min/1.73 sqM) Est GFR (CKD-EPI)NonAf (>60 ml/min/1.73 sqM) Glucose (74-99) mg/dL Plasma Lactic Acid [place] 0.6 L (0.7-2.0) mmol/L Calcium (8.4-10.2) mg/dL Total Bilirubin (0.2-1.3) mg/dL AST (14-36) U/L ALT (4-34) U/L Alkaline Phosphatase (38-126) U/L Total Protein (6.3-8.2) g/dL Albumin (3.5-5.0) g/dL Amylase (30-110) U/L Lipase (23-300) U/L Urine Color Urine Appearance (Clear) Urine pH (5.0-8.0) Ur Specific [place] (1.001-1.035) Urine Protein (Negative) Urine Glucose (UA) (Negative) Urine Ketones (Negative) Urine Blood (Negative) Urine Nitrite (Negative) Urine Bilirubin (Negative) Urine Urobilinogen (<2.0) mg/dL Ur Leukocyte Esterase (Negative) Urine RBC (0-5) /hpf Urine WBC (0-5) /hpf Ur Squamous Epith Cells (0-4) /hpf Urine Bacteria (None) /hpf Hyaline Casts (0-2) /lpf Urine Mucus (None) /hpf - EKG Data EKG Comments: EKG reveals normal sinus rhythm with no ST changes. Ventricular rate 77 bpm, HI interval 158, QRS duration 81, QT/QTc 348/380 (Ya Daigle) Disposition <Eveline Garíca - Last Filed: 12/30/23 13:46> Is patient prescribed a controlled substance at d/c from ED?: No Time of Disposition: 18:04 <Ya Daigle - Last Filed: 12/30/23 22:56> Clinical Impression: Gastroenteritis Disposition: HOME SELF-CARE Condition: Stable Instructions (If sedation given, give patient instructions): Gastroenteritis (ED) Additional Instructions: Take Zofran as needed for nausea and Tylenol threes as needed for pain. Hydrate aggressively and practice the BRAT diet. Follow-up with PCP/Dr. Page as discussed. Please return to the Emergency Department if symptoms worsen or any other concerns. Referrals: Arron Blackburn MD [Primary Care Provider] - 1-2 days
[2023-12-30 13:52] LABS: Basophils % (A) 1 %; Eosinophils # (A) 0.2 k/uL (0-0.7); Eosinophils % (A) 2 %; HCT 40.6 % (34.0-46.0); HGB 13.3 gm/dL (11.4-16.0); Lymphocytes # (A) 1.9 k/uL (1.0-4.8); Lymphocytes % (A) 31 %; MCH 30.6 pg (25.0-35.0); MCHC 32.8 g/dL (31.0-37.0); MCV 93.4 fL (80.0-100.0); Mean Platelet Volume 7.2; Monocytes # (A) 0.4 k/uL (0-1.0); Monocytes % (A) 6 %; Neutrophils # (A) 3.8 k/uL (1.3-7.7); Neutrophils % (A) 59 %; Platelet Count 315 k/uL (150-450); RBC 4.35 m/uL (3.80-5.40); WBC 6.3 k/uL (3.8-10.6)
[2023-12-30 14:06] LABS: ALT 42 U/L (4-34); AST 39 U/L (14-36); African American GFR (CKD) >90 (>60 ml/min/1.73 sqM); Albumin 4.4 g/dL (3.5-5.0); Alkaline Phosphatase 122 U/L (38-126); Amylase 42 U/L (30-110); Anion Gap 8 mmol/L; Blood Urea Nitrogen 11 mg/dL (7-17); Calcium 8.9 mg/dL (8.4-10.2); Carbon Dioxide 26 mmol/L (22-30); Chloride 103 mmol/L (98-107); Glucose 106 mg/dL (74-99); Lipase 61 U/L (23-300); Non-African American GFR(CKD) 84 (>60 ml/min/1.73 sqM); Potassium 3.9 mmol/L (3.5-5.1); Sodium 137 mmol/L (137-145); Total Bilirubin 0.3 mg/dL (0.2-1.3); Total Protein 7.4 g/dL (6.3-8.2)
[2023-12-30 16:19] LABS: Appearance,Urine Cloudy (Clear); Bacteria,Urine Rare /hpf; Bilirubin,Urine Negative (Negative); Blood,Urine Moderate (Negative); Color,Urine Light Yellow; Glucose,Urine (UA) Negative (Negative); Hyaline Casts,Urine 1 /lpf (0-2); Ketones,Urine Negative (Negative); Leukocyte Esterase,Urine Small (Negative); Mucus,Urine Rare /hpf; Nitrite,Urine Negative (Negative); PH, Urine 5.5 (5.0-8.0); Protein,Urine Negative (Negative); RBC,Urine 3 /hpf (0-5); Specific Gravity,Urine 1.013 (1.001-1.035); Squamous Epithelial Cell,Urine 7 /hpf (0-4); Urobilinogen,Urine <2.0 mg/dL (<2.0); WBC,Urine 5 /hpf (0-5)
[2023-12-30] MEDS: ONDANSETRON 4 MG/2 ML VIAL IVP STA (16:21)
[2023-12-30] MEDS: KETOROLAC 15 MG/ML 1 ML VIAL IVP STA (16:21)
[2023-12-30] MEDS: MORPHINE SULFATE 4 MG/ML SYRINGE IVP STA (16:21)
[2023-12-30] MEDS: SODIUM CHLORIDE 0.9% 1,000 ML IV STA (16:22)
--- NOTE | 2023-12-30 16:59 | CT ---
EXAMINATION TYPE: CT abdomen pelvis w con DATE OF EXAM: 12/30/2023 4:50 PM COMPARISON: 07/08/2023 CLINICAL INDICATION: Female, 58 years old with history of epigastric pain; Epigastric pain. TECHNIQUE: Axial CT abdomen pelvis w con;Sagittal and coronal reformats were created on a separate w orkstation. Contrast used:100 ml mL of Isovue 300 with IV Contrast, (none if empty) Oral contrast used: without Oral Contrast (none if empty) CT DLP: 1172.4 mGycm, Automated exposure control for dose reduction was used. FINDINGS: LOWER CHEST: Unremarkable ABDOMEN LIVER: Unremarkable GALLBLADDER AND BILE DUCTS: Gallbladder is surgically absent with mild intrahepatic and extra hepatic biliary dilatation likely physiologic and a postcholecystectomy change. No evidence of choledocholit hiasis. PANCREAS: Unremarkable. SPLEEN: Unremarkable. ADRENAL GLANDS: Unremarkable. KIDNEYS AND URETERS: No evidence of hydronephrosis or renal calculus. The ureters are unremarkable. PELVIS BLADDER: No evidence for wall thickening or mass given limitations of exam. REPRODUCTIVE: Unremarkable. ABDOMEN & PELVIS STOMACH AND BOWEL: Hyperemic loops of small bowel just above the Pam pelvis evidence of bowel obstruc tion. Gastric lap band in place. PERITONEUM/RETROPERITONEUM: No evidence of pneumoperitoneum or free fluid. VASCULATURE: No evidence of aortic aneurysm. MUSCULOSKELETAL: No acute osseous abnormalities, postsurgical changes to the bowel for L5 and S1 vert ebral body levels with hardware intact. LYMPH NODES: No gross evidence for lymphadenopathy. SOFT TISSUE/ABDOMINAL WALL: Unremarkable IMPRESSION: 1. Loops of small bowel situated in the low pelvis which demonstrates circumferential wall thickenin g. Correlate for enteritis. 2. Gastric lap band in appropriate position. [facility], , 12/30/2023 4:56 PM
[2023-12-30 18:18] VITALS: BP 130/77; PULSE 77; RESP 18
[2023-12-30] MEDS: ONDANSETRON 4 MG ODT STARTER PACK 2 TAB BTL PO STA (18:23)
[2023-12-30] MEDS: ACET/COD 300 MG/30 MG STARTER PACK 6 TAB BTL PO STA (18:23)
== END 2023-12-30 18:24 | disposition home or self-care (01) ==
LOC: EC 13:12
DX: K52.9 Noninfective gastroenteritis and colitis, unspecified (principal)
CPT/HCPCS: 36415; 93005; 80053; 82150; 83605; 83690; 85025; 81001; 74177; 99284; 96374; 96375 ×2; 96361; J2270; J2405; J1885; S0119; Q9967

== ENCOUNTER → 2023-12-30 | Outpatient (CLI) | payer MEDICARE ==
[2023-12-30 13:01] VITALS: BP 147/89; PULSE 79; RESP 16; TEMP 97.9; BMI 30.9
--- NOTE | 2023-12-30 13:57 | P.HPBAR ---
Bariatric H&P - History & Physicial H&P Date: 12/30/23 History & Physicial: Visit/CC: lap band, abdominal pain, nausea and vomiting Patient initial contact: Initial weight: 104.922 kg Initial weight in pounds: 231.31 Height: 5 ft 6 in Initial BMI: 37.3 Last weight: Current weight: 86.891 kg Current weight in pounds: 191.56 Current BMI: 30.9 [place] body weight (based on NIH guidelines): 58.967 kg Excess body weight loss: 39.2% The patient is a 58 year-old F who presents for Bariatric Assessment. This is a 58-year-old female with complaints of abdominal pain nausea and vomiting. Patient states that she has had issues for approximately 1 month. She states she had retching yesterday. 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 PANNI 08/08/2020. panniculectomy 08-08-20 Past Anesthesia/Blood Transfusion Reactions: No Reported Reaction Past Psychological History: No Psychological Hx Reported Smoking Status: Never smoker Past Alcohol Use History: None Reported Past Drug Use History: None Reported - Past Family History Mother Family Medical History: CVA/TIA Father Family Medical History: Cancer, CVA/TIA Additional Family Medical History / Comment(s): PROSTATE CANCER Sister(s) Additional Family Medical History / Comment(s): BRAIN ANEURYSM Surgical - Exam Vital Signs Temp Pulse Resp BP 97.9 F 79 16 147/89 12/30/23 12:49 12/30/23 12:49 12/30/23 12:49 12/30/23 12:49 - General well developed, well nourished, moderate distress - Eyes PERRL - ENT normal pinna - Neck no masses - Respiratory normal expansion Bariatric Assessment & Plan Plan: Patient Lap-Band was empty. 10 cc removed. Patient able to quad without difficulty. Due to the patient's complaints of abdominal pain she was sent to the emergency room for laboratory and possible CAT scan. Bariatric Checklist Checklist: Plan: Checklist: EGD: 1. Hiatal hernia: 2. H. Pylori: HgbA1c: Vitamin D: Smoking: Never smoker Primary care physician referral: Dr. Lee; No set PCP Psychiatry clearance: Cardiology clearance: Sleep study: Diet journal: VTE risk score: VTE risk level: Rehab needs at discharge:
== END ==
LOC: BARWHC3 12:49
PROVIDERS: ATTEND Surgery
DX: Z46.51 Encounter for fitting and adjustment of gastric lap band (principal); E66.01 Morbid (severe) obesity due to excess calories; R10.9 Unspecified abdominal pain; R11.2 Nausea with vomiting, unspecified; Z98.84 Bariatric surgery status; Z68.30 Body mass index [BMI] 30.0-30.9, adult
CPT/HCPCS: 43999; G0463; 99211

== ENCOUNTER → 2024-03-30 | Outpatient (CLI) | payer MEDICARE ==
[2024-03-30 10:46] VITALS: BP 143/84; PULSE 82; RESP 16; TEMP 97.8; BMI 32.4
--- NOTE | 2024-03-30 18:10 | P.HPBAR ---
Bariatric H&P - History & Physicial H&P Date: 03/30/24 History & Physicial: Visit/CC: f/u Patient initial contact: Initial weight: 104.922 kg Initial weight in pounds: 231.31 Height: 5 ft 6 in Initial BMI: 37.3 Last weight: Current weight: 91.172 kg Current weight in pounds: 201.00 Current BMI: 32.4 [place] body weight (based on NIH guidelines): 58.967 kg Excess body weight loss: 29.9% The patient is a 58 year-old F who presents for Bariatric Assessment. Complains of hunger. She is no fluid in her band. She has gained proximately 11 pounds her last visit. 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 PANNI 08/08/2020. panniculectomy 08-08-20 Past Anesthesia/Blood Transfusion Reactions: No Reported Reaction Past Psychological History: No Psychological Hx Reported Smoking Status: Never smoker Past Alcohol Use History: None Reported Past Drug Use History: None Reported - Past Family History Mother Family Medical History: CVA/TIA Father Family Medical History: Cancer, CVA/TIA Additional Family Medical History / Comment(s): PROSTATE CANCER Sister(s) Additional Family Medical History / Comment(s): BRAIN ANEURYSM Surgical - Exam Vital Signs Temp Pulse Resp BP 97.8 F 82 16 143/84 03/30/24 10:25 03/30/24 10:25 03/30/24 10:25 03/30/24 10:25 - General well developed, well nourished, no distress - Eyes PERRL - ENT normal pinna - Neck no masses - Respiratory normal expansion - Cardiovascular Rhythm: regular - Abdomen Abdomen: soft, non tender Bariatric Assessment & Plan Plan: Patient Lap-Band adjusted. She had 5 cc after the band. She will follow-up in 4 weeks. Bariatric Checklist Checklist: Plan: Checklist: EGD: 1. Hiatal hernia: 2. H. Pylori: HgbA1c: Vitamin D: Smoking: Never smoker Primary care physician referral: Dr. Lee; No set PCP Psychiatry clearance: Cardiology clearance: Sleep study: Diet journal: VTE risk score: VTE risk level: Rehab needs at discharge:
== END ==
LOC: BARWHC3 10:10
PROVIDERS: ATTEND Surgery
DX: K44.9 Diaphragmatic hernia without obstruction or gangrene (principal); B96.81 Helicobacter pylori [H. pylori] as the cause of diseases classified elsewhere
CPT/HCPCS: 43999

== ENCOUNTER → 2024-04-27 | Outpatient (CLI) | payer MEDICARE ==
[2024-04-27 10:18] VITALS: BP 144/88; PULSE 66; RESP 16; TEMP 97.8; BMI 33.9
--- NOTE | 2024-04-27 10:45 | P.HPBAR ---
Bariatric H&P - History & Physicial H&P Date: 04/27/24 History & Physicial: Visit/CC: f/u lap band Patient initial contact: Initial weight: 104.922 kg Initial weight in pounds: 231.31 Height: 5 ft 6 in Initial BMI: 37.3 Last weight: Current weight: 95.254 kg Current weight in pounds: 210.00 Current BMI: 33.9 [place] body weight (based on NIH guidelines): 59.09 kg Excess body weight loss: 21.0% The patient is a 58 year-old F who presents for Bariatric Assessment. The patient is today for bariatric follow-up. She is requesting a fill her band. She is currently hungry. 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 PANNI 08/08/2020. panniculectomy 08-08-20 Past Anesthesia/Blood Transfusion Reactions: No Reported Reaction Past Psychological History: No Psychological Hx Reported Smoking Status: Never smoker Past Alcohol Use History: None Reported Past Drug Use History: None Reported - Past Family History Mother Family Medical History: CVA/TIA Father Family Medical History: Cancer, CVA/TIA Additional Family Medical History / Comment(s): PROSTATE CANCER Sister(s) Additional Family Medical History / Comment(s): BRAIN ANEURYSM Surgical - Exam Vital Signs Temp Pulse Resp BP 97.8 F 66 16 144/88 04/27/24 10:12 04/27/24 10:12 04/27/24 10:12 04/27/24 10:12 - General well developed, well nourished, no distress - Eyes PERRL - ENT normal pinna - Neck no masses - Respiratory normal expansion - Cardiovascular Rhythm: regular - Abdomen Abdomen: soft, non tender Bariatric Assessment & Plan Plan: Patient Lap-Band was adjusted. She had 0.2 cc Ativan. She will follow-up in 4 weeks. Her total fill is 5.2 cc Bariatric Checklist Checklist: Plan: Checklist: EGD: 1. Hiatal hernia: 2. H. Pylori: HgbA1c: Vitamin D: Smoking: Never smoker Primary care physician referral: Dr. Lee; [employer] Psychiatry clearance: Cardiology clearance: Sleep study: Diet journal: VTE risk score: VTE risk level: Rehab needs at discharge:
== END ==
LOC: BARWHC3 10:08
PROVIDERS: ATTEND Surgery
DX: Z46.51 Encounter for fitting and adjustment of gastric lap band (principal); Z68.33 Body mass index [BMI] 33.0-33.9, adult
CPT/HCPCS: 43999

== ENCOUNTER → 2024-07-27 | Outpatient (CLI) | payer MEDICARE ==
[2024-07-27 15:49] VITALS: BP 150/88; PULSE 69; RESP 16; TEMP 98.3; BMI 33.7
--- NOTE | 2024-07-28 16:07 | P.HPBAR ---
Bariatric H&P - History & Physicial H&P Date: 07/27/24 History & Physicial: Visit/CC: f/u lap band Patient initial contact: Initial weight: 104.922 kg Initial weight in pounds: 231.31 Height: 5 ft 6 in Initial BMI: 37.3 Last weight: Current weight: 94.801 kg Current weight in pounds: 209.00 Current BMI: 33.7 [place] body weight (based on NIH guidelines): 59.09 kg Excess body weight loss: 22.0% The patient is a 59 year-old F who presents for Bariatric Assessment.This is a 59-year-old female who presents today for follow-up. She is requesting a fill of her Lap-Band. She currently feels hungry. 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 PANNI 08/08/2020. panniculectomy 08-08-20 Past Anesthesia/Blood Transfusion Reactions: No Reported Reaction Past Psychological History: No Psychological Hx Reported Smoking Status: Never smoker Past Alcohol Use History: None Reported Past Drug Use History: None Reported - Past Family History Mother Family Medical History: CVA/TIA Father Family Medical History: Cancer, CVA/TIA Additional Family Medical History / Comment(s): PROSTATE CANCER Sister(s) Additional Family Medical History / Comment(s): BRAIN ANEURYSM Surgical - Exam Vital Signs Temp Pulse Resp BP 98.3 F 69 16 150/88 07/27/24 15:42 07/27/24 15:42 07/27/24 15:42 07/27/24 15:42 - General well developed, well nourished, no distress - Eyes PERRL - ENT normal pinna, normal nares Bariatric Assessment & Plan Plan: Patient's Lap-Band was adjusted. She had 1 cc after the band. She currently 6.2 cc in the band. She will follow-up in She currently 6.2 cc in the band. She will follow-up in Bariatric Checklist Checklist: Plan: Checklist: EGD: 1. Hiatal hernia: 2. H. 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
== END ==
LOC: BARWHC3 09:15
PROVIDERS: ATTEND Surgery
DX: E66.01 Morbid (severe) obesity due to excess calories (principal); Z68.33 Body mass index [BMI] 33.0-33.9, adult
CPT/HCPCS: 43999

== ENCOUNTER → 2024-08-31 | Outpatient (CLI) | payer MEDICARE ==
[2024-08-31 14:58] VITALS: BP 163/91; PULSE 73; TEMP 97.9; BMI 33.2
--- NOTE | 2024-09-03 16:08 | P.HPBAR ---
Bariatric H&P - History & Physicial H&P Date: 08/31/24 History & Physicial: Visit/CC: lap band follow up Patient initial contact: Initial weight: 104.922 kg Initial weight in pounds: 231.31 Height: 5 ft 6 in Initial BMI: 37.3 Last weight: Current weight: 93.44 kg Current weight in pounds: 206.00 Current BMI: 33.2 [place] body weight (based on NIH guidelines): 59.3 kg Excess body weight loss: 25.1% The patient is a 59 year-old F who presents for Bariatric Assessment. patient presents today for bariatric follow-up. She is requesting a fill of her Lap-Band. 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 PANNI 08/08/2020. panniculectomy 08-08-20 Past Anesthesia/Blood Transfusion Reactions: No Reported Reaction Past Psychological History: No Psychological Hx Reported Smoking Status: Never smoker Past Alcohol Use History: None Reported Past Drug Use History: None Reported - Past Family History Mother Family Medical History: CVA/TIA Father Family Medical History: Cancer, CVA/TIA Additional Family Medical History / Comment(s): PROSTATE CANCER Sister(s) Additional Family Medical History / Comment(s): BRAIN ANEURYSM Surgical - Exam Vital Signs Temp Pulse BP 97.9 F 73 163/91 08/31/24 14:55 08/31/24 14:55 08/31/24 14:55 - General well developed, well nourished, no distress - Eyes PERRL - ENT normal pinna - Neck no masses - Respiratory normal expansion - Cardiovascular Rhythm: regular - Abdomen Abdomen: soft, non tender Bariatric Assessment & Plan Plan: The patient's Lap-Band was adjusted. She had 0.5 cc at the band. She will follow-up in 4 weeks. Bariatric Checklist Checklist: Plan: Checklist: EGD: 1. Hiatal hernia: 2. H. 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
== END ==
LOC: BARWHC3 09:20
PROVIDERS: ATTEND Surgery
DX: E66.01 Morbid (severe) obesity due to excess calories (principal); Z68.33 Body mass index [BMI] 33.0-33.9, adult
CPT/HCPCS: 43999